=== PATIENT | male | born 1940 | race Caucasian/White ===

== ENCOUNTER → 2019-06-22 13:40 | Outpatient (CLI) | payer MEDICARE, SELFPAY ==
--- NOTE | 2019-06-22 15:47 | PM.TREADMILL ---
Cardiac Stress Test Report Referral & Results Date Patient Seen: 06/22/19 Requesting provider: Kannan Mock Indication: Syncope Rest ECG: Interventricular conduction delay, right bundle branch block with left anterior fascicular block possible (atypical lead placement for treadmill makes this difficult to be sure) Procedure Note: Today following both written and verbal informed consent, the patient was exercised according to a standard George protocol. The patient exercised for a total of 6 minutes 24 seconds achieving a maximum heart rate of 152. Patient's maximum systolic blood pressure was 188. This was an estimated 7.0 MET's. Impression: There were no obvious ST-T segment changes except for single lead V3. This is in the setting of an abnormal ECG at baseline. Excellent exercise capacity with an Function aerobic impairment of-10% or 110% of normal No dysrhythmias or other etiology for syncope Please note: Actual ECG tracings can be found in the PACS system.
== END ==
PROVIDERS: PCP Internal Medicine; Visit Provider Internal Medicine
DX: R07.9 Chest pain, unspecified (principal); R55 Syncope and collapse; I45.10 Unspecified right bundle-branch block
CPT/HCPCS: 93016; 93017; 93018

== ENCOUNTER → 2020-08-27 09:36 | Outpatient (CLI) | payer MEDICARE, SELFPAY ==
--- NOTE | 2020-08-27 09:37 | DI.RAD.S_ITS ---
PROCEDURE: XR LUMBAR SPINE MIN 4V INDICATIONS: Back pain TECHNIQUE: 5 views of the lumbar spine were acquired, including bilateral oblique views. COMPARISON: None. FINDINGS: Bones: 5 nonrib-bearing vertebrae are present. There is mild L4-L5 anterolisthesis secondary to facet hypertrophy. No vertebral body compression fractures. No suspicious bony lesions. Severe L2-L3 and L5-S1 degenerative disc disease. Mild L1-L2, L3-L4 and L4-L5 degenerative disc disease. Severe bilateral L4-L5 and L5-S1 facet arthropathy. No pars interarticularis defects. Soft tissues: Overlying bowel gas pattern is normal. No suspicious soft tissue calcifications. Atherosclerotic calcifications noted in the visualized abdominal and pelvic vasculature. Oblique images: No pars defects. IMPRESSION: 1. Multilevel degenerative disc disease. 2. Multilevel facet arthropathy. 3. Grade 1 L4-L5 degenerative spondylolisthesis. 4. No fracture. No acute osseous lesion. If symptoms and/or clinical suspicion for pathology persists, evaluation with MRI should be considered for further assessment. Dictated by: Jessa Ibrahim MD, PhD on 08/27/2020 at 17:01 Approved by: Jessa Ibrahim MD, PhD on 08/27/2020 at 17:03
== END ==
PROVIDERS: PCP Internal Medicine; Referring Provider Internal Medicine; Visit Provider Internal Medicine
DX: M54.5 Low back pain (principal); G89.29 Other chronic pain; M51.36 Other intervertebral disc degeneration, lumbar region; M47.816 Spondylosis without myelopathy or radiculopathy, lumbar region; M47.817 Spondylosis without myelopathy or radiculopathy, lumbosacral region; M43.16 Spondylolisthesis, lumbar region
CPT/HCPCS: 72110

== ENCOUNTER → 2020-11-15 07:18 | Outpatient (CLI) | payer MEDICARE, SELFPAY ==
--- NOTE | 2020-11-15 07:20 | DI.MRI.S_ITS ---
PROCEDURE: MR LUMBAR SPINE WO CON INDICATIONS: Lumbar facet arthropathy TECHNIQUE: Noncontrast sagittal T1 spin echo and T2 fast echo, sagittal STIR, axial T1 and T2 fast spin echo through the lumbar spine. In cases with scoliosis, additional coronal T2 fast spin echo may be performed. COMPARISON: [facility], MR, L-SPINE WITHOUT CONTRAST, 02/24/2016, 8:16. FINDINGS: Image quality: Excellent. Alignment and Curvature: Grade 1 retrolisthesis of L2 on L3. Trace anterolisthesis of L4 on L5. Bone Marrow: Multilevel spondylosis/endplate changes. Diffuse facet arthropathy. Scattered small Schmorl's nodes. No evidence of acute fracture Spinal Cord: Conus medullaris terminates at the L1-L2 level. Visualized cord demonstrates normal signal and size. Paraspinous Soft Tissues: No paravertebral masses. T12-L1: Moderate left-sided canal narrowing with anterior effacement of the thecal sac. This is progressed since the prior study. Mild partial effacement of the left lateral recess. No foraminal narrowing. L1-L2: Right paracentral disc extrusion with superior migration of disc material to the mid L1 vertebral body level, with mild canal narrowing. This is new since the prior study. Effacement of the right lateral recess. Moderate right foraminal stenosis, and mild left foraminal narrowing. No interval change L2-L3: Dorsal epidural lipomatosis. Broad-based posterior disc bulge and moderate canal narrowing. Partial effacement of both lateral recesses with bilaterally symmetric appearance. Severe right and moderate left foraminal stenoses, with slight progression on the right since 02/24/16. L3-L4: Broad-based posterior disc bulge, with mild to moderate central canal narrowing. Partial effacement of both lateral recesses with bilaterally symmetric appearance. Severe right foraminal stenosis with slight nerve root compression. Moderate left foraminal narrowing. No definite interval change. L4-L5: Mild canal narrowing. Partial effacement of both lateral recesses with bilaterally symmetric appearance. Moderate right foraminal stenosis and mild left foraminal narrowing. No interval change. L5-S1: No high-grade canal stenosis. Partial effacement of both lateral recesses with bilaterally symmetric appearance. Severe left foraminal stenosis with nerve root compression. Severe right foraminal stenosis with nerve root compression. This appears slightly progressed on the left since the prior study. Unchanged on the right IMPRESSION: Multilevel lumbar spondylosis, and spondylolisthesis as above. Interval progression in canal and foraminal stenoses as detailed above by spinal level since 02/24/16 Dictated by: Carlton Guerrero M.D. on 11/15/2020 at 8:32 Approved by: Carlton Guerrero M.D. on 11/15/2020 at 8:42
== END ==
PROVIDERS: PCP Internal Medicine; Referring Provider Physical Medicine & Rehabilitation; Visit Provider Physical Medicine & Rehabilitation
DX: M43.16 Spondylolisthesis, lumbar region (principal); M47.816 Spondylosis without myelopathy or radiculopathy, lumbar region; M48.061 Spinal stenosis, lumbar region without neurogenic claudication; M48.07 Spinal stenosis, lumbosacral region
CPT/HCPCS: 72148

== ENCOUNTER → 2020-12-09 09:44 | Outpatient (CLI) | payer MEDICARE, SELFPAY ==
[2020-12-09 11:10] LABS: COVID19 -Nasal RAPID Negative (Negative)
== END ==
PROVIDERS: PCP Internal Medicine; Visit Provider Student in an Organized Health Care Education/Training Program
DX: Z20.822 Contact with and (suspected) exposure to COVID-19 (principal); Z01.812 Encounter for preprocedural laboratory examination
CPT/HCPCS: 87635; C9803

== ENCOUNTER 2020-12-10 13:51 | Outpatient (CLI) | payer MEDICARE, SELFPAY ==
[2020-12-10] VITALS (7 sets, daily range): BP systolic 165–196; BP diastolic 68–92; PULSE 60–65; RESP 16–23; TEMP 36.6; O2SAT 96–100
--- NOTE | 2020-12-10 13:53 | DI.RAD.S_ITS ---
PROCEDURE: PAIN L/S FACET INJ/BLK 1ST STEVE COMPARISON: None. INDICATIONS: SPONDYLOSIS FINDINGS: Needle tip positioning is symmetric bilaterally, for medial branch block procedures involving the right and left L4, L5, and S1 nerve roots. IMPRESSION: Expected medial branch block needle tip positioning for bilateral L4, L5 and S1 nerve root block procedures. Dictated by: Jose Reyes M.D. on 12/10/2020 at 15:32 Approved by: Jose Reyes M.D. on 12/10/2020 at 15:33
[2020-12-10] MEDS: fentaNYL 100 MCG/2 ML INJ 50 MCG IV (15:00)
[2020-12-10] MEDS: MIDAZOLAM 5 MG/5 ML VIAL IV (15:00)
[2020-12-10] MEDS: IOPAMIDOL 15 ML VIAL 3 ML INJ (15:04)
[2020-12-10] MEDS: LIDOCAINE 1% 20 ML 10 ML INJ (15:04)
[2020-12-10] MEDS: BUPIVACAINE 0.5% (PF) VIAL 5 ML INJ (15:04)
--- NOTE | 2020-12-10 16:16 | PC.NURSE ---
Pt admitted with SBP 160s. Discharged [facility] SBP of 190's. Dr Beltran aware and approved Discharge.
--- NOTE | 2020-12-10 16:44 | PM.PROC.IR.1 ---
Date/Time/Diagnoses Date of procedure: 12/10/20 Time of procedure: 16:44 Pre-procedure diagnosis: 1. FACET ARTHROPATHY Post-procedure diagnosis: same Procedure Notes Procedure: 1. BILATERAL- L4, L5 and S1 DIAGNOSTIC MB BLOCKS with LA Anesthetic Indications: Shweta is referred by Dr. Pryor for treatment of Bilateral Axial LBP. Physician: Ernst Beltran Total Fluoroscopy time (seconds): 8 Total sedation minutes: 12 Complications: none Procedure in detail & Post-procedure care: DESCRIPTION OF PROCEDURE Fluoroscopically guided, contrast-controlled bilateral L4, L5 and S1 medial branch blocks with 0.5cc of 0.5% Marcaine. Following review of allergy and review of potential side effects and complications, including, but not necessarily limited to, infection, allergic reaction, local tissue breakdown, nerve injury, paralysis, stroke and possible , the patient indicated that the patient understood and agreed to proceed. An informed consent document was signed by the patient, witnessed by a nurse, and placed in the patient's chart. After review of previous anaesthesic history and IV conscious sedation the patient was deemed safe to proceed with today's procedure with IV conscious sedation as ASA class II designation. Safety time-out was performed to confirm patient ID, procedure to be performed and site of procedure. IV sedation was accomplished with a combination of 2mg of Versed and 50mcg of Fentanyl was administered by the RN after DO order, titrated to patient comfort during the course of the procedure while the patient remained responsive to all verbal commands In the prone position, following sterile prep and drape of the lumbar region, the right L4, L5 and S1 anatomical location of the medial branch of the dorsal ramus was identified fluoroscopically. Subsequently an anesthetic skin wheal using 1% lidocaine solution was initiated at each of the anatomical spots. Subsequently then a 22-gauge 3.5-inch spinal needle was atraumatically introduced and advanced under fluoroscopic guidance at each of the corresponding sites at the right L4, L5 and S1 MB. After negative aspiration, 0.2cc of Isovue 200 was injected, confirming placement without vascular or intrathecal uptake. Subsequently then 0.5cc of 0.5% Marcaine solution was injected at each of the corresponding sites at the right L4, L5 and S1 medial branch locations. The identical procedure was replicated on the left. The patient tolerated the procedure well without signs or symptoms of complications prior to transfer to the recovery area continued monitoring without incident. Post-procedure, the patient was monitored initiating provocative activities to measure the amount of relief from block of the facetogenic pain. The patient reported a VAS of 7 prior to the procedure and a post-procedure VAS of 1. It has been a pleasure to assist in the diagnostic and therapeutic care of your patient. POST OP INSTRUCTIONS The patient was provided with a Pain Log to complete over the next several hours and subsequent days prior to the patient's follow up with the ordering physician. If the patient has global transportation manager relief to the solution applied, then they may be a candidate for medial branch rhizotomy. The patient is aware, was provided, once again, with a Pain Log and will follow up with the referring physician for review and clinical correlation
== END 2020-12-10 15:40 | disposition home or self-care (01) ==
LOC: RAD 13:52
PROVIDERS: PCP Internal Medicine; Referring Provider Physical Medicine & Rehabilitation; Visit Provider Physical Medicine & Rehabilitation
DX: M47.816 Spondylosis without myelopathy or radiculopathy, lumbar region (principal); M43.16 Spondylolisthesis, lumbar region
CPT/HCPCS: 64493; 64494; 99152; J2250; J3010

== ENCOUNTER 2021-01-14 11:57 | Inpatient (IN) | payer MEDICARE, SELFPAY ==
[2021-01-14] VITALS (36 sets, daily range): BP systolic 104–157; BP diastolic 55–69; PULSE 68–92; RESP 15–31; TEMP 36.8–37.6; O2SAT 96–100; BMI 23.6
--- NOTE | 2021-01-14 12:01 | DI.CT.S_ITS ---
PROCEDURE: CT HEAD/BRAIN WO CON INDICATIONS: dizzy, weak, left leg trembling. TECHNIQUE: Noncontrast 4.5 mm thick angled axial sections acquired from the foramen magnum to the vertex, with coronal and sagittal reformats. For radiation dose reduction, the following was used: automated exposure control, adjustment of mA and/or kV according to patient size. COMPARISON: None. FINDINGS: Image quality: Excellent. CSF spaces: Basal cisterns are patent. No extra-axial fluid collections. The ventricles are symmetric in size and shape. Brain: No intracranial bleeds or masses. There is cerebral volume loss for age, with resultant ventricular and sulcal prominence. There are periventricular and deep white matter chronic small vessel ischemic changes. There is intracranial internal carotid artery atherosclerosis. Skull and face: Calvarium and visualized facial bones appear intact, without suspicious lesions. Sinuses: Visualized sinuses and mastoids are clear. IMPRESSION: 1. No acute intracranial abnormality. 2. Age related cerebral volume loss and small vessel ischemic changes. Dictated by: Oh Vazquez M.D. on 01/14/2021 at 12:56 Approved by: Oh Vazquez M.D. on 01/14/2021 at 12:57
[2021-01-14] MEDS: SODIUM CHLORIDE 0.9% 1,000 ML 150 ML IV (12:38)
[2021-01-14 12:42] LABS: INR 1.1 (0.9-1.3); Prothrombin Time 12.8 SECONDS (10.1-12.7)
[2021-01-14 12:45] LABS: Alanine Aminotransferase 16 IU/L (<50); Albumin 3.2 g/dL (3.5-5.0); Albumin Globulin Ratio 1.3 (1.0-2.8); Alkaline Phosphatase 49 U/L (38-126); Aspartate Aminotransferase 26 IU/L (17-59); BUN Creatinine Ratio 56.1 (6-22); Bilirubin Total 0.2 mg/dL (0.2-1.3); Blood Urea Nitrogen 46 mg/dL (9-20); Calcium 8.4 mg/dL (8.4-10.2); Carbon Dioxide 24 mmol/L (22-32); Chloride 107 mmol/L (98-107); Creatine Kinase 67 U/L (55-170); Estimated Glomerular Filt Rate > 60.0 mL/min (>60); Globulin 2.5 g/dL (1.7-4.1); Glucose 126 mg/dL (80-110); HEMOLYSIS < 15 (0-50); PTT Partial Thromboplastin Tim 20 SECONDS (26.4-36.2); Potassium 4.1 mmol/L (3.4-5.1); Sodium 138 mmol/L (137-145); Total Protein 5.7 g/dL (6.3-8.2)
[2021-01-14 12:49] LABS: Add Manual Diff / Slide Review NO; Basophils Absolute Auto 100 /uL (0-100); Basophils Percent Auto 0.7 % (0-2); Eosinophils Absolute Auto 0 /uL (0-450); Eosinophils Percent Auto 0.2 % (2-4); Hematocrit 21.8 % (41-53); Hemoglobin 7.1 g/dL (13.5-17.5); Lymphocytes Absolute Auto 2100 /uL (1100-4500); Lymphocytes Percent Auto 13.3 % (25-40); Mean Corpuscular HGB Conc 32.4 % (30-36); Mean Corpuscular Hemoglobin 31.2 PG (26-34); Mean Corpuscular Volume 96.3 fL (80-100); Monocytes Absolute Auto 1000 /uL (0-900); Monocytes Percent Auto 6.6 % (3-14); Neutrophils Absolute Auto 12500 /uL (1500-7000); Neutrophils Percent Auto 79.2 % (50-75); Platelet Count 241 X10^3/uL (150-400); Red Blood Cell Count 2.26 X10^6/uL (4.5-5.9); White Blood Cell Count 15.8 X10^3/uL (4.5-11.0)
[2021-01-14 12:59] LABS: Troponin I 0.354 ng/mL (0.01-0.034)
--- NOTE | 2021-01-14 13:03 | ED.NEUROSD ---
HPI - Neuro Symptoms/Deficit General Chief Complaint: Neuro Symptoms/Deficit Stated Complaint: vertigo, shortness of breath Time Seen by Provider: 01/14/21 13:00 Source: patient and family Mode of arrival: Wheelchair History of Present Illness HPI Narrative: This is a pleasant 80-year-old male comes emergency department with complaint of lightheadedness, almost syncope but states he did not pass out. He denies any headache, denies vision changes, no chest pain or shortness of breath. He had some abdominal crampy pain over the weekend on Wednesday and Wednesday and had multiple explosive diarrheal black bowel movements which have since ceased. Patient does have chronic back issues. Patient denies any numbness or tingling but did feel like he is having some shaking in his left arm and possibly well male. Patient denies any surgical history. He does not take any blood thinners. He does take metoprolol for blood pressure, he denies any diabetes, kidney disease or prior GI bleeds he is aware of. No prior surgical history. No allergies. He quit smoking in the , 1 alcoholic drink daily maximum with no illicit drugs. He is accompanied by his son. His is currently hospitalized here at [facility]. Dr. Pryor is his primary care. On Anticoagulants: No Related Data Home Medications Medication Instructions Recorded Confirmed Calcium 2 tab PO DAILY 03/08/20 11/01/20 Green Tea 1 tab PO DAILY 03/08/20 11/01/20 Vitamin A 1 tab PO DAILY 03/08/20 11/01/20 Vitamin D 1 tab PO Q OTHER DAY 03/08/20 11/01/20 betamethasone dipropionate 0.05 % 1 applictn TOP DAILY gram 03/08/20 11/01/20 topical ointment krill oil 500 mg capsule 500 mg PO DAILY cap 03/08/20 11/01/20 lutein 20 mg tablet 20 mg PO DAILY 03/08/20 11/01/20 Previous Rx's Medication Instructions Recorded metoprolol succinate 50 mg 50 mg PO DAILY #90 tab 10/04/20 tablet,extended release 24 hr celecoxib 200 mg capsule (Celebrex) 200 mg PO DAILY #30 cap 10/28/20 Allergies Allergy/AdvReac Type Severity Reaction Status Date / Time No Known Drug Allergies Allergy Verified 11/01/20 15:38 Review of Systems Review of Systems ROS Unobtainable: All systems reviewed & are unremarkable except as noted in HPI and below Hematologic/Lymphatic On Anticoagulants: No 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 HEENT: Atraumatic, pupils are equal round reactive to light, extraocular movements are intact, nares are clear, no facial droop HEART: Regular rate and rhythm without murmur, clicks, rubs. Pulses are equal in upper and lower extremities LUNGS:Lungs clear to auscultation, no wheezes, rales, crackles, chest moves symmetrically ABD:bowel sounds normal, soft, non-tender, no guarding, rebound, rigidity, no masses noted, no hepatosplenomegaly :No CVA tenderness MSCL: Non-tender, no muscle atrophy, muscles strength 5/5 upper and lower extremities, full range of motion, normal gait NEURO:CN 2-12 intact, sensation normal, finger nose finger test normal, heel eric test normal, romberg normal, normal speech. SKIN: No rash, skin changes noted Initial Vital Signs Initial Vital Signs: Vital Signs Temperature 98.3 F 01/14/21 12:10 Pulse Rate 80 01/14/21 12:10 Respiratory Rate 25 H 01/14/21 12:10 Blood Pressure 157/69 H 01/14/21 12:10 Pulse Oximetry 96 01/14/21 12:10 Scores NIH Stroke Scale Level of Conciousness: Alert, keenly responsive Ask month/age: Answers both questions correctly. Open/close eyes, close hand: Performs both tasks correctly Best gaze horizontal: Normal Visual burns: No visual loss Facial palsy: Normal symetrical movement Left arm drift: No drift for full 10 sec Right arm drift: No drift for full 10 sec Left leg drift: No drift for full 5 sec Right leg drift: No drift for full 5 sec Limb ataxia: Absent Sensory on face/arms/legs: Normal, no sensory loss Best language: No aphasia, normal Dysarthria: Normal Extinction or inattention: No abnormality Total NIH Stroke scale score: 0 Course Orders Ordered: ED Orders 01/14/21 12:01 CT head/brain wo con Stat Urine Drug Screen, Rapid Stat EKG-12 Lead Stat 01/14/21 12:15 Complete Blood Count AUTO DIFF Stat Comprehensive Metabolic Panel Stat NT-proBNP (BNP-Adult 18+) Stat Partial Thromboplastin Time Stat Prothrombin Time INR Stat Troponin & CK Cardiac Panel Stat 01/14/21 13:24 CT abdomen pelvis w con Stat 01/14/21 13:30 COVID19 - ADMIT ([facility] [employer]IST swab/PCR) Stat 01/14/21 13:40 Packed Cells Stat Type and Screen Stat 01/14/21 14:31 Troponin I Stat 01/14/21 18:30 Urinalysis and Microscopic Stat Sodium Chloride (Normal Saline 0.9%) 1,000 mls @ 150 mls/hr IV CONT TOMASA Last Infusion: 01/14/21 18:20 Dose: 150 mls/hr Documented by: Infusion: 01/14/21 14:52 Dose: 0 mls/hr Documented by: Admin: 01/14/21 12:38 Dose: 150 mls/hr Documented by: MONIQUEOR Discontinued Medications Aspirin (Aspirin 81 Mg Chew Tab) 324 mg PO NOW ONE Stop: 01/14/21 13:07 Last Admin: 01/14/21 13:10 Dose: 324 mg Documented by: ATAYLOR Pantoprazole Sodium (Pantoprazole 40 Mg Vial) 80 mg IV NOW ONE Stop: 01/14/21 14:10 Last Admin: 01/14/21 14:16 Dose: 80 mg Documented by: ATAYLOR Consultations Consultation #1: Dr. Mccartney, aware of patient. Plan to transfuse and they will follow. Consultation #2: Dr. Pryor, accepts for gi bleed. no cardiology at this time suspect demand ischemia. protonix, blood and asa given today. Vital Signs Vital signs: Vital Signs - 8 hr 01/14/21 12:10 01/14/21 13:03 01/14/21 13:30 Temperature 98.3 F Pulse Rate 80 76 77 Respiratory Rate 25 H 26 H 27 H Blood Pressure 157/69 H 132/60 Pulse Oximetry 96 100 100 01/14/21 13:37 01/14/21 13:45 01/14/21 14:00 Temperature Pulse Rate 78 74 92 H Respiratory Rate 30 H 18 15 Blood Pressure 140/64 135/61 119/56 L Pulse Oximetry 100 100 96 01/14/21 14:15 01/14/21 14:30 Temperature Pulse Rate 79 80 Respiratory Rate 31 H 28 H Blood Pressure 135/63 Pulse Oximetry 98 99 MDM - Neuro Symptoms/Deficit Lab Data Result diagrams: 01/14/21 12:15 01/14/21 12:15 Labs: Lab Results 01/14/21 01/14/21 01/14/21 Range/Units 12:15 12:15 12:15 WBC 15.8 H (4.5-11.0) X10^3/uL RBC 2.26 L (4.5-5.9) X10^6/uL Hgb 7.1 L (13.5-17.5) g/dL Hct 21.8 L (41-53) % MCV 96.3 (80-100) fL MCH 31.2 (26-34) PG MCHC 32.4 (30-36) % RDW 14.0 (11.6-14.8) % Plt Count 241 (150-400) X10^3/uL Neut % (Auto) 79.2 H (50-75) % Lymph % (Auto) 13.3 L (25-40) % [place] % (Auto) 6.6 (3-14) % Eos % (Auto) 0.2 L (2-4) % Baso % (Auto) 0.7 (0-2) % Neut # (Auto) 17632 H (8881-7879) /uL Lymph # (Auto) 2100 (3105-7760) /uL [place] # (Auto) 1000 H (0-900) /uL Eos # (Auto) 0 (0-450) /uL Baso # (Auto) 100 (0-100) /uL PT 12.8 H (10.1-12.7) SECONDS INR 1.1 (0.9-1.3) APTT 20 L (26.4-36.2) SECONDS Sodium 138 (137-145) mmol/L Potassium 4.1 (3.4-5.1) mmol/L Chloride 107 (98-107) mmol/L Carbon Dioxide 24 (22-32) mmol/L BUN 46 H (9-20) mg/dL Creatinine 0.82 (0.66-1.25) mg/dL Estimated GFR > 60.0 (>60) mL/min BUN/Creatinine Ratio 56.1 H (6-22) Glucose 126 H (80-110) mg/dL Calcium 8.4 (8.4-10.2) mg/dL Total Bilirubin 0.2 (0.2-1.3) mg/dL AST 26 (17-59) IU/L ALT 16 (<50) IU/L Alkaline Phosphatase 49 (38-126) U/L Total Creatine Kinase 67 (55-170) U/L CK-MB (CK-2) TNP CK-MB (CK-2) Rel Index TNP Troponin I 0.354 H* (0.01-0.034) ng/mL NT-Pro-B Natriuret Pep (<450) pg/mL Total Protein 5.7 L (6.3-8.2) g/dL Albumin 3.2 L (3.5-5.0) g/dL Globulin 2.5 (1.7-4.1) g/dL Albumin/Globulin Ratio 1.3 (1.0-2.8) SARS-CoV-2 (PCR) (Negative) Blood Type Antibody Screen Crossmatch 01/14/21 01/14/21 01/14/21 Range/Units 12:15 13:30 13:40 WBC (4.5-11.0) X10^3/uL RBC (4.5-5.9) X10^6/uL Hgb (13.5-17.5) g/dL Hct (41-53) % MCV (80-100) fL MCH (26-34) PG MCHC (30-36) % RDW (11.6-14.8) % Plt Count (150-400) X10^3/uL Neut % (Auto) (50-75) % Lymph % (Auto) (25-40) % [place] % (Auto) (3-14) % Eos % (Auto) (2-4) % Baso % (Auto) (0-2) % Neut # (Auto) (4100-8710) /uL Lymph # (Auto) (8508-9873) /uL [place] # (Auto) (0-900) /uL Eos # (Auto) (0-450) /uL Baso # (Auto) (0-100) /uL PT (10.1-12.7) SECONDS INR (0.9-1.3) APTT (26.4-36.2) SECONDS Sodium (137-145) mmol/L Potassium (3.4-5.1) mmol/L Chloride (98-107) mmol/L Carbon Dioxide (22-32) mmol/L BUN (9-20) mg/dL Creatinine (0.66-1.25) mg/dL Estimated GFR (>60) mL/min BUN/Creatinine Ratio (6-22) Glucose (80-110) mg/dL Calcium (8.4-10.2) mg/dL Total Bilirubin (0.2-1.3) mg/dL AST (17-59) IU/L ALT (<50) IU/L Alkaline Phosphatase (38-126) U/L Total Creatine Kinase (55-170) U/L CK-MB (CK-2) CK-MB (CK-2) Rel Index Troponin I (0.01-0.034) ng/mL NT-Pro-B Natriuret Pep 540 H (<450) pg/mL Total Protein (6.3-8.2) g/dL Albumin (3.5-5.0) g/dL Globulin (1.7-4.1) g/dL Albumin/Globulin Ratio (1.0-2.8) SARS-CoV-2 (PCR) Negative (Negative) Blood Type O Positive Antibody Screen Negative Crossmatch See Detail 01/14/21 Range/Units 14:31 WBC (4.5-11.0) X10^3/uL RBC (4.5-5.9) X10^6/uL Hgb (13.5-17.5) g/dL Hct (41-53) % MCV (80-100) fL MCH (26-34) PG MCHC (30-36) % RDW (11.6-14.8) % Plt Count (150-400) X10^3/uL Neut % (Auto) (50-75) % Lymph % (Auto) (25-40) % [place] % (Auto) (3-14) % Eos % (Auto) (2-4) % Baso % (Auto) (0-2) % Neut # (Auto) (1857-1310) /uL Lymph # (Auto) (5581-2238) /uL [place] # (Auto) (0-900) /uL Eos # (Auto) (0-450) /uL Baso # (Auto) (0-100) /uL PT (10.1-12.7) SECONDS INR (0.9-1.3) APTT (26.4-36.2) SECONDS Sodium (137-145) mmol/L Potassium (3.4-5.1) mmol/L Chloride (98-107) mmol/L Carbon Dioxide (22-32) mmol/L BUN (9-20) mg/dL Creatinine (0.66-1.25) mg/dL Estimated GFR (>60) mL/min BUN/Creatinine Ratio (6-22) Glucose (80-110) mg/dL Calcium (8.4-10.2) mg/dL Total Bilirubin (0.2-1.3) mg/dL AST (17-59) IU/L ALT (<50) IU/L Alkaline Phosphatase (38-126) U/L Total Creatine Kinase (55-170) U/L CK-MB (CK-2) CK-MB (CK-2) Rel Index Troponin I 0.323 H* (0.01-0.034) ng/mL NT-Pro-B Natriuret Pep (<450) pg/mL Total Protein (6.3-8.2) g/dL Albumin (3.5-5.0) g/dL Globulin (1.7-4.1) g/dL Albumin/Globulin Ratio (1.0-2.8) SARS-CoV-2 (PCR) (Negative) Blood Type Antibody Screen Crossmatch Point of Care Testing Glucose POC [address] scan - abdomen/pelvis: Radiologist's Impression: [address], [place] [address]XK Scan ReportSigned Patient: Riley Sexton PMR#: [id number]: 1940Acct:[id number]/Sex: 80 / MDate of Service: 01/14/21Loc: EDAccession Number: [id number] Procedure: CT abdomen pelvis w con Ordering Provider: Ellen Cortes D.O. PROCEDURE: CT ABDOMEN PELVIS W CON INDICATIONS: anemia, gi bleed TECHNIQUE: After the administration of IV contrast, axial sections were acquired from the lung bases to the pubic symphysis. Coronal and sagittal reformats were performed. For radiation dose reduction, the following was used: automated exposure control, adjustment of mA and/or kV according to patient size. COMPARISON: [facility], CT, IVP (ABD & PEL WWO CONTRAST), 09/20/2012, 9:20. FINDINGS: Image quality: Excellent. Lung bases: Unremarkable. Heart: Within normal limits. ABDOMEN: Liver: Unremarkable. Gallbladder: Unremarkable. Biliary ducts: Unremarkable. Pancreas: Unremarkable. Spleen: Small hyperdense focus in the superior spleen is unchanged and likely a hemangioma. Adrenal Glands: Unremarkable. Kidneys and Ureters: No hydronephrosis. Nonobstructing calculus at the superior pole of the right kidney measuring 0.2 cm. Stomach and Bowel: No small bowel obstruction. No focal area of contrast accumulation. Diverticulosis. No diverticulitis. The appendix is not distended. There is a small appendicular lith measuring 0.7 cm. Peritoneum: No abnormal intraperitoneal fluid. No free air. Ventral Wall: No hernia. Abdominal Nodes: No retroperitoneal or mesenteric adenopathy by size criteria. Vessels: Aorta and inferior vena cava are normal in size. Severe calcified atherosclerotic plaque. PELVIS: Pelvic Organs: Prostatomegaly with median lobe hypertrophy. Bladder: Unremarkable. Pelvic Nodes: No enlarged lymph nodes. Miscellaneous: No inguinal hernias are seen. Bones: Unremarkable. DDD. IMPRESSION: 1. No acute abnormality identified. No free fluid. 2. Diverticulosis. 3. Small appendiculolith. Appendix is not dilated. 4. Small nonobstructing right kidney stone. Dictated by: Giuseppe Thomas M.D. on 01/14/2021 at 14:07 Approved by: Giuseppe Thomas M.D. on 01/14/2021 at 14:15 CT scan - head: Radiologist's Impression: [address] [id number] Scan ReportSigned Patient: Riley Sexton PMR#: [id number]: 1940Acct:[id number]/Sex: 80 / MDate of Service: 01/14/21Loc: EDAccession Number: [id number] Procedure: CT head/brain wo con Ordering Provider: Ellen Cortes D.O. PROCEDURE: CT HEAD/BRAIN WO CON INDICATIONS: dizzy, weak, left leg trembling. TECHNIQUE: Noncontrast 4.5 mm thick angled axial sections acquired from the foramen magnum to the vertex, with coronal and sagittal reformats. For radiation dose reduction, the following was used: automated exposure control, adjustment of mA and/or kV according to patient size. COMPARISON: None. FINDINGS: Image quality: Excellent. CSF spaces: Basal cisterns are patent. No extra-axial fluid collections. The ventricles are symmetric in size and shape. Brain: No intracranial bleeds or masses. There is cerebral volume loss for age, with resultant ventricular and sulcal prominence. There are periventricular and deep white matter chronic small vessel ischemic changes. There is intracranial internal carotid artery atherosclerosis. Skull and face: Calvarium and visualized facial bones appear intact, without suspicious lesions. Sinuses: Visualized sinuses and mastoids are clear. IMPRESSION: 1. No acute intracranial abnormality. 2. Age related cerebral volume loss and small vessel ischemic changes. Dictated by: Oh Vazquez M.D. on 01/14/2021 at 12:56 Approved by: Oh Vazquez M.D. on 01/14/2021 at 12:57 ECG Data Interpretation: Sinus rhythm with sinus arrhythmia, right bundle-branch block. Ventricular rate PR150 QRS of 138 QTC 464. No priors for comparision. MDM Narrative Medical decision making narrative: This is an 80-year-old male who comes to the emergency department for weakness, near-syncope and black stools over the weekend. Patient's hemoglobin is 7 with no priors for comparison. His troponin is positive with right bundle-branch block on EKG unclear if he has any other changes. Patient has positive stool occult. No significant renal changes from baseline. Patient's troponin was trending down words. Patient was transfused 1 unit here in the department, CT imaging was obtained of the head which was negative an NIH was 0 and I suspect patient's dizziness vertigo symptoms are actually near syncope. Patient's CT abdomen and pelvis, does not show any acute changes. No patient was discussed with Dr. Mccartney for General surgery as well as Dr. Pryor who accepts for admission. Suspect his troponin is demand ischemia and no plan for Cardiology at this time. Patient was placed on Protonix as well as a single dose of aspirin given. Critical Care Time Critical Care Time Critical Care Time: Yes Total Critical Care Time: 95 Attestation: The high probability of a clinically significant, sudden or life threatening deterioration of the [cardiac] system(s) required my full and direct attention, intervention and personal management. The aggregate critical care time was [] minutes. This time is in addition to time spent performing reported procedures but includes the following: [x] Data Review and interpretation [x] Patient assessment and monitoring of vital signs [x] Documentation [x] Medication orders and management Discharge Plan Departure Patient Disposition: Admitted as Observation Clinical Impression: Acute GI bleeding, Symptomatic anemia Admit Date/Time: 01/14/21 14:34 Admit Provider: Mian Pryor
[2021-01-14] MEDS: ASPIRIN 81 MG CHEW TAB 324 MG PO (13:10)
--- NOTE | 2021-01-14 13:24 | DI.CT.S_ITS ---
PROCEDURE: CT ABDOMEN PELVIS W CON INDICATIONS: anemia, gi bleed TECHNIQUE: After the administration of IV contrast, axial sections were acquired from the lung bases to the pubic symphysis. Coronal and sagittal reformats were performed. For radiation dose reduction, the following was used: automated exposure control, adjustment of mA and/or kV according to patient size. COMPARISON: [facility], CT, IVP (ABD & PEL WWO CONTRAST), 09/20/2012, 9:20. FINDINGS: Image quality: Excellent. Lung bases: Unremarkable. Heart: Within normal limits. ABDOMEN: Liver: Unremarkable. Gallbladder: Unremarkable. Biliary ducts: Unremarkable. Pancreas: Unremarkable. Spleen: Small hyperdense focus in the superior spleen is unchanged and likely a hemangioma. Adrenal Glands: Unremarkable. Kidneys and Ureters: No hydronephrosis. Nonobstructing calculus at the superior pole of the right kidney measuring 0.2 cm. Stomach and Bowel: No small bowel obstruction. No focal area of contrast accumulation. Diverticulosis. No diverticulitis. The appendix is not distended. There is a small appendicular lith measuring 0.7 cm. Peritoneum: No abnormal intraperitoneal fluid. No free air. Ventral Wall: No hernia. Abdominal Nodes: No retroperitoneal or mesenteric adenopathy by size criteria. Vessels: Aorta and inferior vena cava are normal in size. Severe calcified atherosclerotic plaque. PELVIS: Pelvic Organs: Prostatomegaly with median lobe hypertrophy. Bladder: Unremarkable. Pelvic Nodes: No enlarged lymph nodes. Miscellaneous: No inguinal hernias are seen. Bones: Unremarkable. DDD. IMPRESSION: 1. No acute abnormality identified. No free fluid. 2. Diverticulosis. 3. Small appendiculolith. Appendix is not dilated. 4. Small nonobstructing right kidney stone. Dictated by: Giuseppe Thomas M.D. on 01/14/2021 at 14:07 Approved by: Giuseppe Thomas M.D. on 01/14/2021 at 14:15
[2021-01-14 13:34] LABS: NT-proBNP (BNP-Adult 18+) 540 pg/mL (<450)
[2021-01-14] MEDS: PANTOPRAZOLE 40 MG VIAL 80 MG IV (14:16)
[2021-01-14 14:46] LABS: COVID19 - ADMIT (NP swab/PCR) Negative (Negative)
[2021-01-14 15:01] LABS: Troponin I 0.323 ng/mL (0.01-0.034)
--- NOTE | 2021-01-14 15:12 | P.HP_ITS ---
History of Present Illness History of Present Illness Date Patient Seen: 01/14/21 Time Patient Seen: 15:12 Chief complaint: vertigo, shortness of breath Narrative: 80-year-old male admitted via the emergency department with symptoms of dizziness as well as shortness of breath. His spouse is currently hospitalized with complications related to her poorly characterized lymphoma and he has been under a great deal stress regarding this, over the last month or more He called my office complaining of weakness and some shortness of breath as well as a sense of dizziness maybe even some numbness and tingling left greater than right. We directed him to the emergency department worries found to be quite anemic. He says he had very loose diarrheal stool on the and 12 of January that was very dark/black in color. He has not had a bowel movement since the 12 of January.. Denies any other GI symptoms including lack of upper stomach or abdominal pain or discomfort. 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) Melanoma (~2016) Mixed hyperlipidemia Retinal detachment (~2001) Spondylolisthesis at L4-L5 level Tinnitus (~2014) Surgical History Anesthesia History of spinal surgery Family & Social History Safety & Behavioral: Feels Safe in Current Yes Environment Been Physically Hurt or No Threatened By a Person Tobacco & Substance use: Smoking Status Former smoker alcohol intake frequency 0-2 drinks per day Meds Home Medications and Allergies Home Medications Medication Instructions Recorded Confirmed Type Calcium 2 tab PO DAILY 03/08/20 11/01/20 History Green Tea 1 tab PO DAILY 03/08/20 11/01/20 History Vitamin A 1 tab PO DAILY 03/08/20 11/01/20 History Vitamin D 1 tab PO Q OTHER DAY 03/08/20 11/01/20 History betamethasone dipropionate 0.05 % 1 applictn TOP DAILY gram 03/08/20 11/01/20 History topical ointment krill oil 500 mg capsule 500 mg PO DAILY cap 03/08/20 11/01/20 History lutein 20 mg tablet 20 mg PO DAILY 03/08/20 11/01/20 History metoprolol succinate 50 mg 50 mg PO DAILY #90 tab 10/04/20 11/01/20 Rx tablet,extended release 24 hr celecoxib 200 mg capsule (Celebrex) 200 mg PO DAILY #30 cap 10/28/20 11/01/20 Rx Allergies Allergy/AdvReac Type Severity Reaction Status Date / Time No Known Drug Allergies Allergy Verified 11/01/20 15:38 Review of Systems Constitutional Constitutional: Denies excessive sweating, Denies fever(s), Denies headache(s), Denies weakness, Denies weight gain and Denies weight loss Eyes Eyes: Denies loss of vision ENT Ears, Nose, Mouth, and Throat: No change in voice, No dysphagia, No dizziness, N o otalgia, No headache(s), No hoarseness, No lip swelling, No neck pain, No sore throat, No throat swelling and No tongue swelling Cardiovascular Cardiovascular: Denies chest pain, Denies syncope, Denies rapid heart rate, Denies irregular heart rhythm, Denies palpitations, Denies dyspnea, Denies dyspnea on exertion and Denies slow heart rate Respiratory Respiratory: Denies chest congestion, Denies cough, Denies hemoptysis, Denies dyspnea, Denies dyspnea on exertion, Denies stridor and Denies wheezing Gastrointestinal Gastrointestinal: Denies dysphagia Genitourinary Genitourinary: Denies hematuria, Denies difficulty urinating and Denies urinary frequency Musculoskeletal Musculoskeletal: Denies abnormal gait, Denies myalgias, Denies arthralgias, D enies limited range of motion and Denies neck pain Neurologic Neurologic: Denies abnormal speech, Denies abnormal gait, Denies behavioral changes, Denies confusion, Denies dizziness, Denies syncope, Denies headache(s), Denies loss of vision, Denies memory loss, Denies seizure-like activity, Denies paresthesias and Denies weakness Psychiatric Psychiatric: Denies behavioral changes, Denies change in appetite, Denies confusion, Denies difficulty concentrating, Denies auditory hallucinations, Denies memory loss, Denies mood swings and Denies suicidal ideation Endocrine Endocrine: Denies excessive sweating and Denies palpitations Hematologic/Lymphatic Hematologic/Lymphatic: Denies easy bleeding, Denies easy bruising and Denies lymphadenopathy Allergic/Immunologic Allergic/Immunologic: Denies lip swelling, Denies throat swelling, Denies tongue swelling and Denies wheezing Exam Vital Signs (past 8 hours): - 01/14/21 12:10 01/14/21 13:03 01/14/21 13:30 Temperature 98.3 F Pulse Rate 80 76 77 Respiratory Rate 25 H 26 H 27 H Blood Pressure 157/69 H 132/60 Pulse Oximetry 96 100 100 01/14/21 13:37 01/14/21 13:45 01/14/21 14:00 Temperature Pulse Rate 78 74 92 H Respiratory Rate 30 H 18 15 Blood Pressure 140/64 135/61 119/56 L Pulse Oximetry 100 100 96 01/14/21 14:15 01/14/21 14:30 01/14/21 14:37 Temperature Pulse Rate 79 80 76 Respiratory Rate 31 H 28 H 22 Blood Pressure 135/63 119/57 L Pulse Oximetry 98 99 98 01/14/21 14:45 01/14/21 14:47 01/14/21 15:06 Temperature 98.8 F 98.5 F Pulse Rate 80 76 74 Respiratory Rate 27 H 22 17 Blood Pressure 134/60 123/59 L 112/56 L Pulse Oximetry 99 100 Oxygen Delivery Method Room Air Narrative Exam Narrative: Elderly male in no obvious distress lying on a gurney in the e mergency department HEENT-normocephalic atraumatic Neck-no lymphadenopathy no bruits Lungs-clear Heart-regular rate and rhythm no murmur Abdomen-soft nontender nondistended no hepatosplenomegaly Extremities-no cyanosis clubbing or edema Neuro-moves all 4 extremities no focal findings gait not tested Objective Labs Result Diagrams: 01/14/21 12:15 01/14/21 12:15 Labs: Laboratory Results - last 24 hr 01/14/21 01/14/21 01/14/21 12:15 12:15 12:15 WBC 15.8 H RBC 2.26 L Hgb 7.1 L Hct 21.8 L MCV 96.3 MCH 31.2 MCHC 32.4 RDW 14.0 Plt Count 241 Neut % (Auto) 79.2 H Lymph % (Auto) 13.3 L [place] % (Auto) 6.6 Eos % (Auto) 0.2 L Baso % (Auto) 0.7 Neut # (Auto) 65977 H Lymph # (Auto) 2100 [place] # (Auto) 1000 H Eos # (Auto) 0 Baso # (Auto) 100 PT 12.8 H INR 1.1 APTT 20 L Sodium 138 Potassium 4.1 Chloride 107 Carbon Dioxide 24 BUN 46 H Creatinine 0.82 Estimated GFR > 60.0 BUN/Creatinine Ratio 56.1 H Glucose 126 H Calcium 8.4 Total Bilirubin 0.2 AST 26 ALT 16 Alkaline Phosphatase 49 Total Creatine Kinase 67 CK-MB (CK-2) TNP CK-MB (CK-2) Rel Index TNP Troponin I 0.354 H* NT-Pro-B Natriuret Pep Total Protein 5.7 L Albumin 3.2 L Globulin 2.5 Albumin/Globulin Ratio 1.3 SARS-CoV-2 (PCR) Blood Type Antibody Screen Crossmatch 01/14/21 01/14/21 01/14/21 12:15 13:30 13:40 WBC RBC Hgb Hct MCV MCH MCHC RDW Plt Count Neut % (Auto) Lymph % (Auto) [place] % (Auto) Eos % (Auto) Baso % (Auto) Neut # (Auto) Lymph # (Auto) [place] # (Auto) Eos # (Auto) Baso # (Auto) PT INR APTT Sodium Potassium Chloride Carbon Dioxide BUN Creatinine Estimated GFR BUN/Creatinine Ratio Glucose Calcium Total Bilirubin AST ALT Alkaline Phosphatase Total Creatine Kinase CK-MB (CK-2) CK-MB (CK-2) Rel Index Troponin I NT-Pro-B Natriuret Pep 540 H Total Protein Albumin Globulin Albumin/Globulin Ratio SARS-CoV-2 (PCR) Negative Blood Type O Positive Antibody Screen Negative Crossmatch See Detail 01/14/21 14:31 WBC RBC Hgb Hct MCV MCH MCHC RDW Plt Count Neut % (Auto) Lymph % (Auto) [place] % (Auto) Eos % (Auto) Baso % (Auto) Neut # (Auto) Lymph # (Auto) [place] # (Auto) Eos # (Auto) Baso # (Auto) PT INR APTT Sodium Potassium Chloride Carbon Dioxide BUN Creatinine Estimated GFR BUN/Creatinine Ratio Glucose Calcium Total Bilirubin AST ALT Alkaline Phosphatase Total Creatine Kinase CK-MB (CK-2) CK-MB (CK-2) Rel Index Troponin I 0.323 H* NT-Pro-B Natriuret Pep Total Protein Albumin Globulin Albumin/Globulin Ratio SARS-CoV-2 (PCR) Blood Type Antibody Screen Crossmatch Assessment & Plan Assessment & Plan narrative: 1. Acute GI bleeding-symptoms are suggestive more of an upper GI bleed which be consistent with this history as well with his increased stress etcetera. I abbi erica he is low enough (from hemoglobin hematocrit standpoint) especially with the minimally elevated troponin to benefit from transfusion in so will get that accomplished. I think he needs upper endoscopy and he has been started on proton pump inhibitor already emergency department. He was given aspirin in the emergency department due to the elevated troponin but I will hold off on any further NSAIDs. Patient does have a history of colonic diverticulitis so this could be a lower GI source although given the history above with dark stool seems more likely to be an upper rather than lower GI source. If upper endoscopy fails to reveal an etiology could be prepped for colonoscopy in colonoscopy could be performed. I will consult General surgery for thoughts regarding appropriateness of upper and/or lower endoscopy 2. Elevated troponin-patient with no known coronary disease and if there is any ischemia likely secondary to demand due to his acute blood loss anemia. Continue to trend his troponin unless there some features to suggest otherwise assume this will normalize. Once he is stabilized could consider outpatient workup for possible coronary artery disease. 3. Acute blood loss anemia-as above will transfuse based on his GI bleeding as well as elevated troponin 4. Back pain-patient with chronic back pain. Will have some oxycodone available for pain control since patient is not a candidate for any NSAIDs 5. VTE prophylaxis-patient not candidate for anticoagulation given his GI bleeding. SCDs would be appropriate. 6. Code status-patient should be full code in the event of sudden cardiac or respiratory arrest which is not anticipated. Given the serious nature of his presentation with active GI bleeding and elevated troponin patient's certainly deserves inpatient hospitalization. He likely be in the hospital greater than 48 hours that will span 2 separate midnights at least. COVID-19 COVID-19 status: Negative
[2021-01-14 19:32] LABS: UR Morphine/Opiate cutoff 300 Negative (Negative); Ur Creatinine Normal (Normal); Ur Specific Gravity Normal (Normal); Urine Amphetamines Negative (Negative); Urine Barbiturates Negative (Negative); Urine Benzodiazepines Negative (Negative); Urine Cocaine Negative (Negative); Urine MDMA Negative (Negative); Urine Methadone Negative (Negative); Urine Methamphetamines Negative (Negative); Urine Oxycodone Negative (Negative); Urine Phencyclidine Negative (Negative); Urine Tetrahydrocannabinol Negative (Negative); Urine Tricyclic Antidepressant Negative (Negative); Urine pH Normal (Normal)
[2021-01-14 19:52] LABS: Appearance Urine UA CLEAR; Bacteria Urine None Seen; Bilirubin Urine UA NEGATIVE (NEGATIVE); Color Urine UA YELLOW; Glucose Urine UA NEGATIVE (Negative); Ketones Urine UA NEGATIVE (NEGATIVE); Leukocyte Esterase Urine UA NEGATIVE (NEGATIVE); Nitrite Urine UA NEGATIVE (Negative); Occult Blood Urine UA NEGATIVE (Negative); Protein Urine UA NEGATIVE (Negative); Specific Gravity Urine UA <=1.005 (1.000-1.035); Urobilinogen Urine UA 0.2 E.U./dL (0.2)
[2021-01-14 19:56] LABS: Culture Indicated Urine Cult Not Indicated; RBC Urine 0-1/HPF (0-5/HPF); Squamous Epithelial Cell Urine 0-1 /HPF (0-5/HPF); WBC Urine 1-5/HPF (0-5/HPF)
[2021-01-14] MEDS: DEXTROSE 5%-0.9% NS 1,000 ML 100 ML IV (21:05)
[2021-01-14 21:32] LABS: Troponin I 0.317 ng/mL (0.01-0.034)
--- NOTE | 2021-01-14 22:03 | PC.NURSE ---
Pt arrived 2014. Oriented to room & call system. Lungs clear, SpO2 96% RA Second unit of PRBC's infusing into RAC via pump w/o incidence. Pt requested to be let alone to sleep. Call light w/in reach, bed alarm on for pt safety. Continue w/plan of care.
[2021-01-14] MEDS: PANTOPRAZOLE 40 MG VIAL IV (22:20)
[2021-01-15] VITALS (17 sets, daily range): BP systolic 102–149; BP diastolic 40–87; PULSE 62–81; RESP 12–18; TEMP 36.1–37; O2SAT 94–100; BMI 23.6
--- NOTE | 2021-01-15 | PATH_ITS ---
[facility] Accession Number: [id number] . 01 Material submitted: . PART A: duodenum - DUODENUM PART B: stomach - ANTRUM . 01 Clinical history: . B) RULE OUT H.PYLORI . 02 Diagnosis: A. Duodenum, Biopsy: Active duodenitis with gastric surface foveolar metaplasia and separate fragments of fibrinopurulent exudate consistent with nearby ulcer. Negative for intraepithelial lymphocytosis. Negative for dysplasia and malignancy. . B. Stomach, Antrum, Biopsy: Antral mucosa with mild chronic gastritis. No evidence of Helicobacter on H/E stain. Negative for intestinal metaplasia. Negative for dysplasia and malignancy. . [facility] 01/17/2021 1343 Local . 02 Comment: B. An immunohistochemical stain will be performed to evaluate for Helicobacter organisms and the results reported as an addendum. . 02 Electronically signed: . Christa Bridges MD, Pathologist NPI- [id number] . 01 Gross description: . Part A: DUODENUM: Received in formalin is 1 fragment(s) of rudolph, soft tissue measuring 0.2 x 0.2 x 0.1 cm submitted entirely in 1 cassette(s) Part B: ANTRUM: Received in formalin are 2 fragment(s) of rudolph, soft tissue measuring 0.5 x 0.3 x 0.1 cm to 0.2 x 0.2 x 0.1 cm submitted entirely in 1 cassette(s) /TEA 01/16/2021 0416 Local . 02 Pathologist provided ICD-10: R10.9 . 02 CPT . 508842, 860906, [id number] Performed at: 01 [facility] [address] [place] [address] [address], [place], [place] [id number] MD Seth Azevedo MD Phone: [phone] Performed at: 02 [facility] [id number] [place] [id number] MD Christa Bridges MD Phone: [phone]
--- NOTE | 2021-01-15 01:30 | PC.NURSE ---
0028 2nd unit of PRBC transfused. No signs & symptoms of transfusion reaction noted. Resumed IVF of D5NS @ 100 cc/hr. Will monitor & continue plan of care.
[2021-01-15 05:24] LABS: Hemoglobin 8.6 g/dL (13.5-17.5)
[2021-01-15 05:38] LABS: BUN Creatinine Ratio 37.2 (6-22); Blood Urea Nitrogen 29 mg/dL (9-20); Calcium 7.8 mg/dL (8.4-10.2); Carbon Dioxide 27 mmol/L (22-32); Chloride 111 mmol/L (98-107); Estimated Glomerular Filt Rate > 60.0 mL/min (>60); Glucose 104 mg/dL (80-110); HEMOLYSIS 15 (0-50); Potassium 3.7 mmol/L (3.4-5.1); Sodium 140 mmol/L (137-145)
[2021-01-15 05:46] LABS: Hematocrit 25.1 % (41-53)
--- NOTE | 2021-01-15 08:19 | PM.PN.1 ---
Subjective Subjective Date Patient Seen: 01/15/21 Time Patient Seen: 08:20 Interval history: Patient with an uneventful night an evening. Received his 2 units of packed red cells. Blood count is a bit lower than expected this morning No cardiac symptoms Troponin trended down although still minimally abnormal No new issues or problems Exam Vital Signs (past 8 hours): - 01/15/21 00:28 01/15/21 05:00 Temperature 97.7 F 97.8 F Pulse Rate 71 71 Respiratory Rate 18 18 Blood Pressure 107/40 L 117/50 L Pulse Oximetry 94 Oxygen Delivery Method Room Air Oxygen Flow Rate 0 Objective Labs Result Diagrams: 01/15/21 05:05 01/15/21 05:05 Labs: Laboratory Results - last 24 hr 01/14/21 01/14/21 01/14/21 12:15 12:15 12:15 WBC 15.8 H RBC 2.26 L Hgb 7.1 L Hct 21.8 L MCV 96.3 MCH 31.2 MCHC 32.4 RDW 14.0 Plt Count 241 Neut % (Auto) 79.2 H Lymph % (Auto) 13.3 L [place] % (Auto) 6.6 Eos % (Auto) 0.2 L Baso % (Auto) 0.7 Neut # (Auto) 94705 H Lymph # (Auto) 2100 [place] # (Auto) 1000 H Eos # (Auto) 0 Baso # (Auto) 100 PT 12.8 H INR 1.1 APTT 20 L Sodium 138 Potassium 4.1 Chloride 107 Carbon Dioxide 24 BUN 46 H Creatinine 0.82 Estimated GFR > 60.0 BUN/Creatinine Ratio 56.1 H Glucose 126 H Calcium 8.4 Total Bilirubin 0.2 AST 26 ALT 16 Alkaline Phosphatase 49 Total Creatine Kinase 67 CK-MB (CK-2) TNP CK-MB (CK-2) Rel Index TNP Troponin I 0.354 H* NT-Pro-B Natriuret Pep Total Protein 5.7 L Albumin 3.2 L Globulin 2.5 Albumin/Globulin Ratio 1.3 Urine Color Urine Appearance Urine pH Ur Specific [place] Urine Protein Urine Glucose (UA) Urine Ketones Urine Occult Blood Urine Nitrate Urine Bilirubin Urine Urobilinogen Ur Leukocyte Esterase Urine RBC Urine WBC Ur Squamous Epith Cells Urine Bacteria Ur Culture Indicated? U Opiates 300ng/mL cut Ur Oxycodone Screen Urine Methadone Screen Ur Barbiturates Screen U Tricyclic Antidepress Ur Phencyclidine Scrn Ur Amphetamines Screen U Methamphetamines Scrn Ur MDMA Scrn (Ecstasy) U Benzodiazepines Scrn Urine Cocaine Screen U Marijuana (THC) Screen SARS-CoV-2 (PCR) Blood Type Antibody Screen Crossmatch 01/14/21 01/14/21 01/14/21 12:15 13:30 13:40 WBC RBC Hgb Hct MCV MCH MCHC RDW Plt Count Neut % (Auto) Lymph % (Auto) [place] % (Auto) Eos % (Auto) Baso % (Auto) Neut # (Auto) Lymph # (Auto) [place] # (Auto) Eos # (Auto) Baso # (Auto) PT INR APTT Sodium Potassium Chloride Carbon Dioxide BUN Creatinine Estimated GFR BUN/Creatinine Ratio Glucose Calcium Total Bilirubin AST ALT Alkaline Phosphatase Total Creatine Kinase CK-MB (CK-2) CK-MB (CK-2) Rel Index Troponin I NT-Pro-B Natriuret Pep 540 H Total Protein Albumin Globulin Albumin/Globulin Ratio Urine Color Urine Appearance Urine pH Ur Specific [place] Urine Protein Urine Glucose (UA) Urine Ketones Urine Occult Blood Urine Nitrate Urine Bilirubin Urine Urobilinogen Ur Leukocyte Esterase Urine RBC Urine WBC Ur Squamous Epith Cells Urine Bacteria Ur Culture Indicated? U Opiates 300ng/mL cut Ur Oxycodone Screen Urine Methadone Screen Ur Barbiturates Screen U Tricyclic Antidepress Ur Phencyclidine Scrn Ur Amphetamines Screen U Methamphetamines Scrn Ur MDMA Scrn (Ecstasy) U Benzodiazepines Scrn Urine Cocaine Screen U Marijuana (THC) Screen SARS-CoV-2 (PCR) Negative Blood Type O Positive Antibody Screen Negative Crossmatch See Detail 01/14/21 01/14/21 01/14/21 14:31 18:32 19:32 WBC RBC Hgb Hct MCV MCH MCHC RDW Plt Count Neut % (Auto) Lymph % (Auto) [place] % (Auto) Eos % (Auto) Baso % (Auto) Neut # (Auto) Lymph # (Auto) [place] # (Auto) Eos # (Auto) Baso # (Auto) PT INR APTT Sodium Potassium Chloride Carbon Dioxide BUN Creatinine Estimated GFR BUN/Creatinine Ratio Glucose Calcium Total Bilirubin AST ALT Alkaline Phosphatase Total Creatine Kinase CK-MB (CK-2) CK-MB (CK-2) Rel Index Troponin I 0.323 H* NT-Pro-B Natriuret Pep Total Protein Albumin Globulin Albumin/Globulin Ratio Urine Color Yellow Urine Appearance Clear Urine pH 5.0 Ur Specific [place] <=1.005 Urine Protein Negative Urine Glucose (UA) Negative Urine Ketones Negative Urine Occult Blood Negative Urine Nitrate Negative Urine Bilirubin Negative Urine Urobilinogen 0.2 Ur Leukocyte Esterase Negative Urine RBC 0-1/hpf Urine WBC 1-5/hpf Ur Squamous Epith Cells 0-1 /hpf Urine Bacteria None seen Ur Culture Indicated? Cult not indicated U Opiates 300ng/mL cut Negative Ur Oxycodone Screen Negative Urine Methadone Screen Negative Ur Barbiturates Screen Negative U Tricyclic Antidepress Negative Ur Phencyclidine Scrn Negative Ur Amphetamines Screen Negative U Methamphetamines Scrn Negative Ur MDMA Scrn (Ecstasy) Negative U Benzodiazepines Scrn Negative Urine Cocaine Screen Negative U Marijuana (THC) Screen Negative SARS-CoV-2 (PCR) Blood Type Antibody Screen Crossmatch 01/14/21 01/15/21 01/15/21 20:50 05:05 05:05 WBC RBC Hgb 8.6 L Hct 25.1 L MCV MCH MCHC RDW Plt Count Neut % (Auto) Lymph % (Auto) [place] % (Auto) Eos % (Auto) Baso % (Auto) Neut # (Auto) Lymph # (Auto) [place] # (Auto) Eos # (Auto) Baso # (Auto) PT INR APTT Sodium 140 Potassium 3.7 Chloride 111 H Carbon Dioxide 27 BUN 29 H Creatinine 0.78 Estimated GFR > 60.0 BUN/Creatinine Ratio 37.2 H Glucose 104 Calcium 7.8 L Total Bilirubin AST ALT Alkaline Phosphatase Total Creatine Kinase CK-MB (CK-2) CK-MB (CK-2) Rel Index Troponin I 0.317 H* NT-Pro-B Natriuret Pep Total Protein Albumin Globulin Albumin/Globulin Ratio Urine Color Urine Appearance Urine pH Ur Specific [place] Urine Protein Urine Glucose (UA) Urine Ketones Urine Occult Blood Urine Nitrate Urine Bilirubin Urine Urobilinogen Ur Leukocyte Esterase Urine RBC Urine WBC Ur Squamous Epith Cells Urine Bacteria Ur Culture Indicated? 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 Presumed upper GI bleed-continue with proton pump inhibitor. Have continued him on clear liquids although anticipating EGD sometime today. Hemoglobin hematocrit improved although not outstanding. Given regional blood shortage without evidence of active bleeding I think I would be comfortable holding off on any additional transfusion at this time. 2. Elevated troponin-patient trended down. Do not think there is active ischemia at this time. Continue to monitor for symptoms. Reviewing patient's record did have a standard treadmill test done in 2019 that was unremarkable. However this was not done with myocardial perfusion any does have baseline ECG abnormalities so there could certainly be some ischemia not identified on that study but at this time that seems unlikely given the degree of anemia and lack of progression in his troponin. Depending on clinical course may well deserve outpatient evaluation including myocardial perfusion imaging 3. Vertigo-patient is yet to be up out of bed to really test this. His blood count is better although not tremendously better. I think that is still the most likely etiology for his vertiginous/lightheaded kind of symptoms. Hopefully endoscopy will show a relatively simple findings such as pyloric or gastric ulcer without evidence of high risk of bleeding and he can be discharged to continue outpatient treatment with proton pump inhibitors etcetera. If high risk features of course we need to monitor longer. If no findings on upper endoscopy than may well require colonoscopy as well. Note: Greater than 20 minutes was spent evaluating the patient on the floor, including examining the patient, discussing clinical course with clinical and nursing staff, reviewing clinical course in the computer, preparing documentation and writing orders for continued management of care, discussing status with family as appropriate, reviewing plans for the next 24 hours with both patient/family and nursing staff as appropriate.
[2021-01-15] MEDS: METOPROLOL ER 50 MG TABLET PO (09:26)
[2021-01-15] MEDS: PANTOPRAZOLE 40 MG VIAL IV ×2 (09:26→21:10)
[2021-01-15] MEDS: SODIUM CHLORIDE 0.9% FLUSH 10 ML IV ×2 (09:27→09:29)
[2021-01-15] MEDS: DEXTROSE 5%-0.9% NS 1,000 ML 100 ML IV (09:27)
--- NOTE | 2021-01-15 09:34 | PC.NURSE ---
Patient alert, oriented, denies pain and nausea. Ambulated down to room 231 to visit spouse. Denies dizziness, gait steady.
--- NOTE | 2021-01-15 11:43 | P.CONS_ITS ---
History of Present Illness Consult details Date Patient Seen: 01/15/21 Time Patient Seen: 11:44 Chief complaint: vertigo, shortness of breath Reason for consult: GI bleed Requesting provider: Mian Pryor Narrative: Under a lot of stress due to chronic illness of . [place] light headed, notice dark color of stools. Had previous peptic ulcer disease years ago. Presented anemic. Has had transfusion. No active bleeding at this time. No pain. Meds Home Medications and Allergies Home Medications Medication Instructions Recorded Confirmed Type Calcium 2 tab PO DAILY 03/08/20 01/14/21 History Green Tea 1 tab PO DAILY 03/08/20 01/14/21 History Vitamin A 1 tab PO DAILY 03/08/20 01/14/21 History Vitamin D 1 tab PO Q OTHER DAY 03/08/20 01/14/21 History betamethasone dipropionate 0.05 % 1 applictn TOP DAILY gram 03/08/20 01/14/21 History topical ointment krill oil 500 mg capsule 500 mg PO DAILY cap 03/08/20 01/14/21 History lutein 20 mg tablet 20 mg PO DAILY 03/08/20 01/14/21 History metoprolol succinate 50 mg 50 mg PO DAILY #90 tab 10/04/20 01/14/21 Rx tablet,extended release 24 hr celecoxib 200 mg capsule (Celebrex) 200 mg PO DAILY #30 cap 10/28/20 01/14/21 Rx Allergies Allergy/AdvReac Type Severity Reaction Status Date / Time No Known Drug Allergies Allergy Verified 11/01/20 15:38 Review of Systems Review of Systems Narrative: fatigue ROS: Yes All systems reviewed with the patient and are negative except as otherwise documented Exam Vital Signs (past 8 hours): - 01/15/21 05:00 01/15/21 07:00 01/15/21 07:42 Temperature 97.8 F 98.4 F Pulse Rate 71 68 Respiratory Rate 18 18 Blood Pressure 117/50 L 132/69 Pulse Oximetry 94 97 97 01/15/21 11:14 Temperature 98.1 F Pulse Rate 70 Respiratory Rate 14 Blood Pressure 134/65 Pulse Oximetry 98 Oxygen Delivery Method Room Air Oxygen Flow Rate 0 Narrative Exam Narrative: no acute distress Const General: cooperative and comfortable Nutritional Appearance: average body habitus Orientation: alert and oriented x3 HENMT Head: normal to inspection Ears: external ears normal Nose: external nose normal Face and sinus: normal facial exam Eyes Sclera: sclerae normal Neck Neck: trachea midline Chest Chest: normal inspection of the chest Resp Effort & Inspection: normal respiratory effort and able to speak in complete sentences Cardio Rate: regular rate Rhythm: regular rhythm GI Inspection: normal to inspection Palpation: soft Skin General: no rashes or lesions noted Neuro General: patient alert and patient oriented x3 Cognition: normal cognition Extrem General: normal to inspection and full ROM Psych Appearance: grossly normal and well kempt Attitude: cooperative Judgment: judgment good Objective Labs Result Diagrams: 01/15/21 05:05 01/15/21 05:05 Labs: Laboratory Results - last 24 hr 01/14/21 01/14/21 01/14/21 12:15 12:15 12:15 WBC 15.8 H RBC 2.26 L Hgb 7.1 L Hct 21.8 L MCV 96.3 MCH 31.2 MCHC 32.4 RDW 14.0 Plt Count 241 Neut % (Auto) 79.2 H Lymph % (Auto) 13.3 L [place] % (Auto) 6.6 Eos % (Auto) 0.2 L Baso % (Auto) 0.7 Neut # (Auto) 71823 H Lymph # (Auto) 2100 [place] # (Auto) 1000 H Eos # (Auto) 0 Baso # (Auto) 100 PT 12.8 H INR 1.1 APTT 20 L Sodium 138 Potassium 4.1 Chloride 107 Carbon Dioxide 24 BUN 46 H Creatinine 0.82 Estimated GFR > 60.0 BUN/Creatinine Ratio 56.1 H Glucose 126 H Calcium 8.4 Total Bilirubin 0.2 AST 26 ALT 16 Alkaline Phosphatase 49 Total Creatine Kinase 67 CK-MB (CK-2) TNP CK-MB (CK-2) Rel Index TNP Troponin I 0.354 H* NT-Pro-B Natriuret Pep Total Protein 5.7 L Albumin 3.2 L Globulin 2.5 Albumin/Globulin Ratio 1.3 Urine Color Urine Appearance Urine pH Ur Specific [place] Urine Protein Urine Glucose (UA) Urine Ketones Urine Occult Blood Urine Nitrate Urine Bilirubin Urine Urobilinogen Ur Leukocyte Esterase Urine RBC Urine WBC Ur Squamous Epith Cells Urine Bacteria Ur Culture Indicated? U Opiates 300ng/mL cut Ur Oxycodone Screen Urine Methadone Screen Ur Barbiturates Screen U Tricyclic Antidepress Ur Phencyclidine Scrn Ur Amphetamines Screen U Methamphetamines Scrn Ur MDMA Scrn (Ecstasy) U Benzodiazepines Scrn Urine Cocaine Screen U Marijuana (THC) Screen SARS-CoV-2 (PCR) Blood Type Antibody Screen Crossmatch 01/14/21 01/14/21 01/14/21 12:15 13:30 13:40 WBC RBC Hgb Hct MCV MCH MCHC RDW Plt Count Neut % (Auto) Lymph % (Auto) [place] % (Auto) Eos % (Auto) Baso % (Auto) Neut # (Auto) Lymph # (Auto) [place] # (Auto) Eos # (Auto) Baso # (Auto) PT INR APTT Sodium Potassium Chloride Carbon Dioxide BUN Creatinine Estimated GFR BUN/Creatinine Ratio Glucose Calcium Total Bilirubin AST ALT Alkaline Phosphatase Total Creatine Kinase CK-MB (CK-2) CK-MB (CK-2) Rel Index Troponin I NT-Pro-B Natriuret Pep 540 H Total Protein Albumin Globulin Albumin/Globulin Ratio Urine Color Urine Appearance Urine pH Ur Specific [place] Urine Protein Urine Glucose (UA) Urine Ketones Urine Occult Blood Urine Nitrate Urine Bilirubin Urine Urobilinogen Ur Leukocyte Esterase Urine RBC Urine WBC Ur Squamous Epith Cells Urine Bacteria Ur Culture Indicated? U Opiates 300ng/mL cut Ur Oxycodone Screen Urine Methadone Screen Ur Barbiturates Screen U Tricyclic Antidepress Ur Phencyclidine Scrn Ur Amphetamines Screen U Methamphetamines Scrn Ur MDMA Scrn (Ecstasy) U Benzodiazepines Scrn Urine Cocaine Screen U Marijuana (THC) Screen SARS-CoV-2 (PCR) Negative Blood Type O Positive Antibody Screen Negative Crossmatch See Detail 01/14/21 01/14/21 01/14/21 14:31 18:32 19:32 WBC RBC Hgb Hct MCV MCH MCHC RDW Plt Count Neut % (Auto) Lymph % (Auto) [place] % (Auto) Eos % (Auto) Baso % (Auto) Neut # (Auto) Lymph # (Auto) [place] # (Auto) Eos # (Auto) Baso # (Auto) PT INR APTT Sodium Potassium Chloride Carbon Dioxide BUN Creatinine Estimated GFR BUN/Creatinine Ratio Glucose Calcium Total Bilirubin AST ALT Alkaline Phosphatase Total Creatine Kinase CK-MB (CK-2) CK-MB (CK-2) Rel Index Troponin I 0.323 H* NT-Pro-B Natriuret Pep Total Protein Albumin Globulin Albumin/Globulin Ratio Urine Color Yellow Urine Appearance Clear Urine pH 5.0 Ur Specific [place] <=1.005 Urine Protein Negative Urine Glucose (UA) Negative Urine Ketones Negative Urine Occult Blood Negative Urine Nitrate Negative Urine Bilirubin Negative Urine Urobilinogen 0.2 Ur Leukocyte Esterase Negative Urine RBC 0-1/hpf Urine WBC 1-5/hpf Ur Squamous Epith Cells 0-1 /hpf Urine Bacteria None seen Ur Culture Indicated? Cult not indicated U Opiates 300ng/mL cut Negative Ur Oxycodone Screen Negative Urine Methadone Screen Negative Ur Barbiturates Screen Negative U Tricyclic Antidepress Negative Ur Phencyclidine Scrn Negative Ur Amphetamines Screen Negative U Methamphetamines Scrn Negative Ur MDMA Scrn (Ecstasy) Negative U Benzodiazepines Scrn Negative Urine Cocaine Screen Negative U Marijuana (THC) Screen Negative SARS-CoV-2 (PCR) Blood Type Antibody Screen Crossmatch 01/14/21 01/15/21 01/15/21 20:50 05:05 05:05 WBC RBC Hgb 8.6 L Hct 25.1 L MCV MCH MCHC RDW Plt Count Neut % (Auto) Lymph % (Auto) [place] % (Auto) Eos % (Auto) Baso % (Auto) Neut # (Auto) Lymph # (Auto) [place] # (Auto) Eos # (Auto) Baso # (Auto) PT INR APTT Sodium 140 Potassium 3.7 Chloride 111 H Carbon Dioxide 27 BUN 29 H Creatinine 0.78 Estimated GFR > 60.0 BUN/Creatinine Ratio 37.2 H Glucose 104 Calcium 7.8 L Total Bilirubin AST ALT Alkaline Phosphatase Total Creatine Kinase CK-MB (CK-2) CK-MB (CK-2) Rel Index Troponin I 0.317 H* NT-Pro-B Natriuret Pep Total Protein Albumin Globulin Albumin/Globulin Ratio Urine Color Urine Appearance Urine pH Ur Specific [place] Urine Protein Urine Glucose (UA) Urine Ketones Urine Occult Blood Urine Nitrate Urine Bilirubin Urine Urobilinogen Ur Leukocyte Esterase Urine RBC Urine WBC Ur Squamous Epith Cells Urine Bacteria Ur Culture Indicated? U Opiates 300ng/mL cut Ur Oxycodone Screen Urine Methadone Screen Ur Barbiturates Screen U Tricyclic Antidepress Ur Phencyclidine Scrn Ur Amphetamines Screen U Methamphetamines Scrn Ur MDMA Scrn (Ecstasy) U Benzodiazepines Scrn Urine Cocaine Screen U Marijuana (THC) Screen SARS-CoV-2 (PCR) Blood Type Antibody Screen Crossmatch Assessment & Plan Assessment & Plan narrative: anemia of chronic blood loss likely upper GI. agree with EGD today and if no etiology then bowel prep and colonoscopy. Even though this gentleman is 80 yo, he is in excellent condition and should be offered screening colonoscopy. COVID-19 COVID-19 status: Negative Time Spent With Patient Time with patient: 15-24 minutes
[2021-01-15] MEDS: LACTATED RINGERS 1,000 ML 42 ML IV ×2 (15:54→17:14)
--- NOTE | 2021-01-15 16:49 | PC.NURSE ---
Addendum entered by Jenifer Dawson R.N. 01/15/21 21:58: Pt presents anxious/irritated w/staff & situation. Pt wanting to be D/C'd. Message to Dr Manriquez & Dr. Mendieta. IVF @ 42cc/hr infusing as per orders. Tele showing NSR/BBB Pt requesting to be left to sleep. Call light w/in reach, pt calls appropriately for needs, Continue w/plan of care. Addendum entered by Jenifer Dawson R.N. 01/15/21 18:37: Pt appears irritated that he has not been discharged. Refuses tele replacement Insisting that RN call MD Call placed to Dr. Manriquez at 1830 Addendum entered by Jenifer Dawson R.N. 01/15/21 18:15: Returned from PACU awake/oriented. IVF connected, Tele placed back on. Cl liquid dinner given VSS at this time Original Note: Pt left for scope at 1500, Escorted by OR staff.
--- NOTE | 2021-01-15 17:03 | CM.DPC ---
Patient is an 80 yo male who was admitted on 01/14/21 for vertigo. Pt has PRE MCR for insurance and his PCP is Dr. Pryor. EMR was reviewed. Per MD, pt with G.I. bleed and needing transfusion and Surgeon to Consult. Per Surgeon, anemia of chronic blood loss likely upper GI. agree with EGD today and if no etiology then bowel prep and colonoscopy. Per RN, pt off floor for scope and awaiting to determine if colonoscopy will be scheduled. No bedside assessment at this time due to triage needs. Plan: SW to follow after EGD to determine if colonoscopy needed towards determining d/c planning needs. TRISTAN Chavez
--- NOTE | 2021-01-15 18:47 | PM.OP.ENDO ---
Operative Date/Time/Diagnoses Date of procedure: 01/15/21 Time of procedure: 19:00 Pre-op diagnosis: Upper GI bleed, symptomatic anemia Post-op diagnosis: same Procedure & Clinicians Study performed: EGD w MAC, cold forcep biopsy of duodenum and antral(H.pylori) Same procedure as scheduled: Yes Indications: anemia, dark stools Surgeon: Gabrielle Manriquez Procedure Notes SCOAP/Timeout: done Procedure in detail: Preop diagnosis: Symptomatic anemia and dark stools Postop diagnosis: Same Operative procedure EGD with cold forceps biopsy Surgeon: Sondra Manriquez MD Anesthesiologist: Herminia Nava MD Findings: of mild gastritis, no gastric ulcers. Duodenitis without ulceration. No active bleeding. No hiatal hernia. Normal esophagus Procedure: Patient is placed in a lateral position. Anesthetic was given. I then intubated into the esophagus advanced to the stomach identified pylorus intubated and the duodenum. Insufflation and extraction of the scope including retroflexed in the stomach and the above findings. Biopsies were taken of the duodenum which was grossly inflamed but not ulcerated. No active bleeding. Biopsy taken also of the antrum of the stomach which showed mild gastritis. Will be sent for H pylori. Impression: Duodenitis and mild gastritis. Possibly source of his anemia. Plan: Continue PPI per Dr. Pryor Findings: gastritis and other findings (duodenitis) Specimen(s): other (duodenal bx and antral bx(x2)) Complications: none Post-procedure Recommendations: No ASA/NSAIDS Follow up: as needed Disposition: PACU
[2021-01-16 00:20] VITALS: BP 132/53; PULSE 91; RESP 18; TEMP 36.6; O2SAT 97
[2021-01-16 00:25] VITALS: O2SAT 97
[2021-01-16 04:50] VITALS: BP 122/57; PULSE 73; RESP 18; TEMP 36.5; O2SAT 95
[2021-01-16 05:33] LABS: Hematocrit 23.5 % (41-53)
[2021-01-16] MEDS: FERROUS SULFATE 325 MG TABLET PO (08:18)
[2021-01-16] MEDS: PANTOPRAZOLE DR 40 MG TABLET PO (08:19)
--- NOTE | 2021-01-16 08:26 | P.DS_ITS ---
History of Present Illness History of Present Illness Date Patient Seen: 01/16/21 Time Patient Seen: 08:26 Chief complaint: vertigo, shortness of breath Narrative: 80-year-old male admitted via the emergency department with symptoms of dizziness as well as shortness of breath. His spouse is currently hospitalized with complications related to her poorly characterized lymphoma and he has been under a great deal stress regarding this, over the last month or more He called my office complaining of weakness and some shortness of breath as well as a sense of dizziness maybe even some numbness and tingling left greater than right. We directed him to the emergency department worries found to be quite anemic. He says he had very loose diarrheal stool on the and 12 of January that was very dark/black in color. He has not had a bowel movement since the 12 of January.. Denies any other GI symptoms including lack of upper stomach or abdominal pain or discomfort. No nausea vomiting Discharge Providers Provider Date of admission: 01/14/21 14:34 Discharge Date: 01/16/21 Primary care physician: Mian Pryor MD Consults: 01/14/21 20:20 Consult to General Surgery Routine Comment: Consulting Provider: Dami Mccartney Reason for consultation: GI bleed Has provider been notified: Yes Discharge provider: Mian Pryor MD Summary Hospital Course Discharge Diagnosis: 1. Acute blood loss anemia 2. Acute upper GI bleeding 3. Duodenitis S source of upper GI bleeding 4. Chronic back pain Hospital Course: Patient is admitted to the hospital where he was monitored. He received proton pump inhibitor and red blood cell transfusion emergency department. He showed no evidence of large volume bleeding and remained hemodynamically stable. He underwent upper endoscopy on the 15 of January. This showed evidence of duodenitis as likely source of bleeding. Blood counts remained relatively stable. Again no evidence of active large volume bleeding. Therefore patient was felt to be stable for discharge to continue treatment of duodenitis with proton pump inhibitor as an outpatient as well as iron supplementation to assist with correction of his anemia Patient's blood pressure is somewhat on the lower side during this hospitalization. However patient will continue on his metoprolol given his borderline troponin Patient's troponin remained minimally abnormal but trended downward. No evidence of active ischemia. I believe his elevated troponin most likely due to some demand ischemia secondary to his significant anemia. Patient will have an outpatient stress test when his blood count is improved. Status at Discharge Cognitive/behavioral status at discharge: oriented Functional status at discharge: independent ambulation Overall status at discharge: patient is progressing back to baseline Time Spent with Patient Time spent: Greater than 30 minutes Exam Vital Signs (past 8 hours): - 01/16/21 04:50 Temperature 97.7 F Pulse Rate 73 Respiratory Rate 18 Blood Pressure 122/57 L Pulse Oximetry 95 Oxygen Delivery Method Room Air Oxygen Flow Rate 0 Objective Labs Result Diagrams: 01/16/21 04:40 01/15/21 05:05 Labs: Laboratory Results - last 24 hr 01/16/21 04:40 Hgb 8.0 L Hct 23.5 L PFSH Medical History Allergic rhinitis, unspecified (01/29/11) Anemia, unspecified Chronic back pain (~2004) Diverticula of colon Essential hypertension Facet arthropathy, lumbar 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) Melanoma (~2016) Mixed hyperlipidemia Retinal detachment (~2001) Spondylolisthesis at L4-L5 level Tinnitus (~2014) Surgical History Anesthesia History of spinal surgery Social History household members: spouse Smoking Status: Former smoker Discharge Assessment & Plan Assessment and Plan Plan of Treatment: Patient will continue on proton pump inhibitors for least 2 weeks Patient will continue on iron Patient be seen in the outpatient clinic in about 2 weeks with plans to repeat CBC etcetera Patient will eventually benefit from cardiac stress testing as well although unl ess there is additional issues in the near term plan to do this once his anemia is corrected Discharge Plan Discharge Plan Patient Disposition: Home Discharge orders & Medications Prescriptions: New ferrous sulfate 325 mg (65 mg iron) Tablet 325 mg PO BIDWM Qty: 150 RF: 3 pantoprazole 40 mg tablet,delayed release (DR/EC) 40 mg PO BID Qty: 60 RF: 3 metoprolol succinate 50 mg tablet extended release 24 hr 50 mg PO DAILY Qty: 90 RF: 3 Continued betamethasone dipropionate 0.05 % ointment 1 applictn TOP DAILY RF: 0 Vitamin A 1 tab PO DAILY RF: 0 Vitamin D 1 tab PO Q OTHER DAY RF: 0 lutein 20 mg tablet 20 mg PO DAILY RF: 0 krill oil 500 mg capsule 500 mg PO DAILY RF: 0 Calcium 2 tab PO DAILY RF: 0 Green Tea 1 tab PO DAILY RF: 0 Discontinued metoprolol succinate 50 mg tablet extended release 24 hr 50 mg PO DAILY Qty: 90 RF: 2 celecoxib [Celebrex] 200 mg capsule 200 mg PO DAILY Qty: 30 RF: 2 Follow up/Referrals: Mian Pryor MD [Primary Care Provider] - 2 Weeks Discharge Health Status Multidrug resistant organism: No MDRO Diet/Activity/Treatments Diet: Diet as Tolerated and Regular Visit Report/Discharge Packet Instructions: DI for Gastritis Discharge Data Primary Care Provider: Mian Pryor
--- NOTE | 2021-01-16 10:00 | CM.MNRNOTE ---
Pt is dressed and ready for discharge home with son. IV's have been removed. Went over d/c instructions with Pt-discussed d/c meds, time of last dose, reviewed stroke education, dietary changes and follow up. New prescription sent to [facility] per Pt request. Pt out via w/c by [employer] to Son with all belongings.
--- NOTE | 2021-01-16 12:45 | CM.DPNOTE ---
DC Note Patient DC today, home w/son. Patient's is also admitted on the acute care floor and patient eager to be discharged. No needs identified from this [employer] today, home w/supportive family. Patient ambulating in room JW
== END 2021-01-16 10:03 | disposition home or self-care (01) | DRG 378 ==
LOC: ED 14:35 → AC 15:35
PROVIDERS: Surgery; Admitting Provider Internal Medicine; Emergency Provider Emergency Medicine; PCP Internal Medicine; Referring Provider Emergency Medicine; Visit Provider Internal Medicine
PROC: 0DJ08ZZ Inspection of Upper Intestinal Tract, Via Natural or Artificial Opening Endoscopic (ICD-10-PCS; CPT 43235; principal; 2021-01-15 15:30)
DX: K29.81 Duodenitis with bleeding (principal); D62 Acute posthemorrhagic anemia; I24.8 Other forms of acute ischemic heart disease; K29.70 Gastritis, unspecified, without bleeding; R42 Dizziness and giddiness; I10 Essential (primary) hypertension; E78.2 Mixed hyperlipidemia; G89.29 Other chronic pain; M54.9 Dorsalgia, unspecified; Z87.891 Personal history of nicotine dependence; Z20.822 Contact with and (suspected) exposure to COVID-19
CPT/HCPCS: 36415; 36430; 43239; 70450; 74177; 80048; 80053; 80305; 81001; 82550; 82962; 83880; 84484; 85014; 85018; 85025; 85610; 85730; 86850; 86900; 86901; 87635; 93005; 96361; 96374; 99223; 99232; 99238; 99285; 99291; 99292; C9803; P9016; C9113; J3010; Q9967

== ENCOUNTER 2021-01-20 10:30 | Observation (INO) | payer MEDICARE, SELFPAY ==
[2021-01-14 20:39] VITALS: BMI 23.6
[2021-01-20] VITALS (17 sets, daily range): BP systolic 107–167; BP diastolic 56–81; PULSE 63–86; RESP 14–25; TEMP 36.2–37.2; O2SAT 94–100; BMI 52.0
[2021-01-20] MEDS: SODIUM CHLORIDE 0.9% 1,000 ML 150 ML IV (12:19)
[2021-01-20 12:30] LABS: Add Manual Diff / Slide Review NO; Basophils Absolute Auto 0 /uL (0-100); Basophils Percent Auto 0.4 % (0-2); Eosinophils Absolute Auto 0 /uL (0-450); Eosinophils Percent Auto 0.3 % (2-4); Hematocrit 28.6 % (41-53); Hemoglobin 9.7 g/dL (13.5-17.5); Lymphocytes Absolute Auto 700 /uL (1100-4500); Lymphocytes Percent Auto 6.5 % (25-40); Mean Corpuscular HGB Conc 33.9 % (30-36); Mean Corpuscular Hemoglobin 31.6 PG (26-34); Mean Corpuscular Volume 93.4 fL (80-100); Monocytes Absolute Auto 700 /uL (0-900); Monocytes Percent Auto 6.6 % (3-14); Neutrophils Absolute Auto 9500 /uL (1500-7000); Neutrophils Percent Auto 86.2 % (50-75); Platelet Count 281 X10^3/uL (150-400); Red Blood Cell Count 3.07 X10^6/uL (4.5-5.9); Red Cell Distribution Width 15.6 % (11.6-14.8)
[2021-01-20 12:40] LABS: Alanine Aminotransferase 15 IU/L (<50); Albumin 3.3 g/dL (3.5-5.0); Albumin Globulin Ratio 1.2 (1.0-2.8); Alkaline Phosphatase 76 U/L (38-126); Aspartate Aminotransferase 26 IU/L (17-59); BUN Creatinine Ratio 15.5 (6-22); Bilirubin Total 0.6 mg/dL (0.2-1.3); Blood Urea Nitrogen 11 mg/dL (9-20); Calcium 8.3 mg/dL (8.4-10.2); Carbon Dioxide 22 mmol/L (22-32); Chloride 109 mmol/L (98-107); Estimated Glomerular Filt Rate > 60.0 mL/min (>60); Globulin 2.8 g/dL (1.7-4.1); Glucose 94 mg/dL (80-110); HEMOLYSIS < 15 (0-50); Potassium 3.8 mmol/L (3.4-5.1); Sodium 138 mmol/L (137-145); Total Protein 6.1 g/dL (6.3-8.2)
[2021-01-20 12:50] LABS: Troponin I < 0.012 ng/mL (0.01-0.034)
--- NOTE | 2021-01-20 13:16 | ED_ITS ---
HPI - Dizziness General Chief Complaint: Dizziness Stated Complaint: severe dizziness, nausea, ongoing Time Seen by Provider: 01/20/21 13:14 Source: patient, family (Son at bedside) and old records reviewed Mode of arrival: Wheelchair Limitations: no limitations History of Present Illness HPI Narrative: This is a pleasant 80-year-old male who was seen by myself on January 14 for acute GI bleed and dizziness. Patient was hospitalized, received 2 units of packed red blood cells had scopes and was found to have duodenitis. Patient was discharged home on his daily metoprolol as well as pantoprazole and starting iron pills which he has not started. Patient states Wednesday as well as today he had 2 episodes of vertigo like symptoms. He states both episodes occurred while he was standing. He did note movement of his head made it worse. He has been quite off balance and list to 1 side. He states his symptoms are improved when he is lying flat. He did have a quite a severe headache on Wednesday. He denies any headache currently. He had some unfocused vision with the last episode which has resolved. He did appreciate double vision. He has had no active vomiting. He has not had any numbness, tingling or weakness of his extremities that he appreciates. No speech changes. No changes to bowel movements, no bright red or melanotic stools. Patient is not currently anticoagulated. Related Data Home Medications Medication Instructions Recorded Confirmed Calcium 2 tab PO DAILY 03/08/20 01/20/21 Green Tea 1 tab PO DAILY 03/08/20 01/20/21 Vitamin A 1 tab PO DAILY 03/08/20 01/14/21 Vitamin D 1 tab PO Q OTHER DAY 03/08/20 01/20/21 betamethasone dipropionate 0.05 % 1 applictn TOP DAILY gram 03/08/20 01/20/21 topical ointment krill oil 500 mg capsule 500 mg PO DAILY cap 03/08/20 01/20/21 lutein 20 mg tablet 20 mg PO DAILY 03/08/20 01/20/21 Previous Rx's Medication Instructions Recorded ferrous sulfate 325 mg (65 mg 325 mg PO BIDWM #150 tab 01/16/21 iron) tablet metoprolol succinate 50 mg 50 mg PO DAILY #90 tab 01/16/21 tablet,extended release 24 hr pantoprazole 40 mg tablet,delayed 40 mg PO BID #60 tab 01/16/21 release Allergies Allergy/AdvReac Type Severity Reaction Status Date / Time No Known Drug Allergies Allergy Verified 01/20/21 10:40 Review of Systems Review of Systems ROS Unobtainable: All systems reviewed & are unremarkable except as noted in HPI and below 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 Patient is pale. HEENT: Atraumatic, pupils are equal round reactive to light, extraocular movements are intact, nares are clear.. Throat is clear without any exudates, erythema, tonsillar enlargement or uvular deviation, no facial droop. Clear speech. HEART: Regular rate and rhythm without murmur, clicks, rubs. Pulses are equal in upper and lower extremities LUNGS:Lungs clear to auscultation, no wheezes, rales, crackles, chest moves symmetrically ABD:bowel sounds normal, soft, non-tender, no guarding, rebound, rigidity, no masses noted, no hepatosplenomegaly :No CVA tenderness MSCL: Non-tender, no muscle atrophy, muscles strength 5/5 upper and lower extremities, full range of motion. NEURO:CN 2-12 intact, sensation normal, reflexes 2/4 upper and lower extremities. finger nose finger test normal, heel eric test moe SKIN: No rash or erythema other skin changes noted. Initial Vital Signs Initial Vital Signs: Vital Signs Temperature 97.1 F L 01/20/21 10:37 Pulse Rate 63 01/20/21 10:37 Respiratory Rate 14 01/20/21 10:37 Blood Pressure 167/69 H 01/20/21 10:37 Pulse Oximetry 100 01/20/21 10:37 Scores NIH Stroke Scale Level of Conciousness: Alert, keenly responsive Ask month/age: Answers both questions correctly. Open/close eyes, close hand: Performs both tasks correctly Best gaze horizontal: Normal Visual burns: No visual loss Facial palsy: Normal symetrical movement Left arm drift: No drift for full 10 sec Right arm drift: No drift for full 10 sec Left leg drift: No drift for full 5 sec Right leg drift: No drift for full 5 sec Limb ataxia: Absent Sensory on face/arms/legs: Normal, no sensory loss Best language: No aphasia, normal Dysarthria: Normal Extinction or inattention: No abnormality Total NIH Stroke scale score: 0 Course Orders Ordered: ED Orders 01/20/21 10:42 EKG-12 Lead Stat 01/20/21 12:06 Complete Blood Count AUTO DIFF Stat Comprehensive Metabolic Panel Stat Troponin I Stat 01/20/21 13:34 CT head/brain wo con Stat 01/20/21 13:41 CT angio head and neck Stat 01/20/21 15:04 MR stroke Stat 01/20/21 15:09 US carotid doppler BI Stat 01/20/21 15:12 COVID19 - ADMIT (DIRECTOR OF DIRECT MARKETING swab/PCR) Stat 01/20/21 16:39 Consult to Discharge Planning Routine Consult to Occupational Therapy Evaluate & Treat Consult to Physical Therapy Evaluate & Treat Consult to Speech Therapy Evaluate & Treat EC echo doppler complete Urgent Acetaminophen (Acetaminophen 325 Mg Tablet) 650 mg PO Q6HR PRN PRN Reason: Fever/Mild Pain (1-3) Ferrous Sulfate (Ferrous Sulfate 325 Mg Tablet) 325 mg PO BIDWM [facility] Last Admin: 01/20/21 17:53 Dose: 325 mg Documented by: CARISSA Lutein (Vit C/E/Zn/Coppr/Lutein/Zeaxan Capsule) 1 cap PO DAILY TOMASA Metoprolol Succinate (Metoprolol Er 50 Mg Tablet) 50 mg PO DAILY TOMASA Pantoprazole Sodium (Pantoprazole Dr 40 Mg Tablet) 40 mg PO BID TOMASA Discontinued Medications Sodium Chloride (Normal Saline 0.9%) 1,000 mls @ 150 mls/hr IV CONT TOMASA Last Infusion: 01/20/21 16:43 Dose: 150 mls/hr Documented by: [email or web address] Admin: 01/20/21 12:19 Dose: 150 mls/hr Documented by: MIKI Consultations Consultation #1: Dr. Che, from [facility] recommends usual stroke workup and observation. An anti-platelet therapy once patient's GI bleed is well controlled. Consultation #2: Dr. Pryor, accepts for CVA. No asa which I agree with suspect cva either from acute ischemia from anemia consistent patients demand ischemia after acute GI bleed and symptomatic anemia earlier this month. Discussed our recommendations from [facility]. Vital Signs Vital signs: Vital Signs - 8 hr 01/20/21 11:46 01/20/21 12:00 01/20/21 12:23 Pulse Rate 69 71 66 Respiratory Rate 18 19 18 Blood Pressure 120/56 L Pulse Oximetry 100 99 01/20/21 12:30 01/20/21 12:31 01/20/21 13:00 Pulse Rate 67 65 69 Respiratory Rate 22 23 23 Blood Pressure 148/67 H 133/62 Pulse Oximetry 01/20/21 13:30 01/20/21 13:52 01/20/21 14:00 Pulse Rate 75 82 Respiratory Rate 24 Blood Pressure 132/63 131/64 115/57 L Pulse Oximetry 99 01/20/21 14:30 01/20/21 15:00 Pulse Rate 68 74 Respiratory Rate 23 25 H Blood Pressure Pulse Oximetry 100 100 MDM - Dizziness Lab Data Result diagrams: 01/20/21 12:06 01/20/21 12:06 Labs: Lab Results 01/20/21 01/20/21 01/20/21 Range/Units 12:06 12:06 15:12 WBC 11.0 (4.5-11.0) X10^3/uL RBC 3.07 L (4.5-5.9) X10^6/uL Hgb 9.7 L (13.5-17.5) g/dL Hct 28.6 L (41-53) % MCV 93.4 (80-100) fL MCH 31.6 (26-34) PG MCHC 33.9 (30-36) % RDW 15.6 H (11.6-14.8) % Plt Count 281 (150-400) X10^3/uL Neut % (Auto) 86.2 H (50-75) % Lymph % (Auto) 6.5 L (25-40) % [place] % (Auto) 6.6 (3-14) % Eos % (Auto) 0.3 L (2-4) % Baso % (Auto) 0.4 (0-2) % Neut # (Auto) 9500 H (7111-2959) /uL Lymph # (Auto) 700 L (1866-1513) /uL [place] # (Auto) 700 (0-900) /uL Eos # (Auto) 0 (0-450) /uL Baso # (Auto) 0 (0-100) /uL Sodium 138 (137-145) mmol/L Potassium 3.8 (3.4-5.1) mmol/L Chloride 109 H (98-107) mmol/L Carbon Dioxide 22 (22-32) mmol/L BUN 11 (9-20) mg/dL Creatinine 0.71 (0.66-1.25) mg/dL Estimated GFR > 60.0 (>60) mL/min BUN/Creatinine Ratio 15.5 (6-22) Glucose 94 (80-110) mg/dL Calcium 8.3 L (8.4-10.2) mg/dL Total Bilirubin 0.6 (0.2-1.3) mg/dL AST 26 (17-59) IU/L ALT 15 (<50) IU/L Alkaline Phosphatase 76 (38-126) U/L Troponin I < 0.012 (0.01-0.034) ng/mL Total Protein 6.1 L (6.3-8.2) g/dL Albumin 3.3 L (3.5-5.0) g/dL Globulin 2.8 (1.7-4.1) g/dL Albumin/Globulin Ratio 1.2 (1.0-2.8) SARS-CoV-2 (PCR) Negative (Negative) Imaging Data CT scan - head: Radiologist's Impression: Riley Sexton ([place]) 80 M [address] [id number] Scan ReportSigned Patient: CarlieRiley PMR#: [id number]: 1940Acct:[id number]/Sex: 80 / MDate of Service: 01/20/21Loc: EDAccession Number: [id number] Procedure: CT head/brain wo con Ordering Provider: Ellen Cortes D.O. PROCEDURE: CT HEAD/BRAIN WO CON INDICATIONS: vertigo, new onset. TECHNIQUE: Noncontrast 4.5 mm thick angled axial sections acquired from the foramen magnum to the vertex, with coronal and sagittal reformats. For radiation dose reduction, the following was used: automated exposure control, adjustment of mA and/or kV according to patient size. COMPARISON: [facility], CT, CT ANGIO HEAD AND NECK, 01/20/2021, 13:42. [facility], CT, CT HEAD/BRAIN WO CON, 01/14/2021, 12:31. FINDINGS: Image quality: Excellent. Multiple foci of hypoattenuation in the right cerebellar hemisphere is new from 01/14/2021 exam. An additional hypoattenuating focus in the left cerebellar hemisphere is new from that exam also. There is also focus of hypoattenuation in the right thalamus which is more conspicuous on the current study. 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 No acute intracranial hemorrhage. No findings of mass effect or midline shift. Patent basilar cisterns. Mild ex vacuo ventricular dilatation as a function of global cerebral volume loss. Intracranial atherosclerosis involving both vertebral arteries and carotid arteries. Paranasal sinuses and mastoid air cells are clear. No gross orbital abnormality. Regional osseous structures intact. IMPRESSION: Multiple foci of hypoattenuation in both cerebellar hemispheres which are new from 01/14/2021 exam and likely reflect subacute infarcts. This correlates with CT angiogram findings in the right vertebral artery and right cerebellar circulation, described on a separately dictated report. Dictated by: Jose Carpio M.D. on 01/20/2021 at 14:09 Approved by: Jose Carpio M.D. on 01/20/2021 at 14:18 CTA - brain/neck: Radiologist's Impression: Riley Sexton) 80 M [address] [id number] Scan ReportSigned Patient: Riley Sexton PMR#: [id number]: 1940Acct:[id number]/Sex: 80 / MDate of Service: 01/20/21Loc: EDAccession Number: [id number] Procedure: CT angio head and neck Ordering Provider: Ellen Cortes D.O. PROCEDURE: CT ANGIO HEAD AND NECK INDICATIONS: vertigo, new onset. CVA? TECHNIQUE: After the administration of intravenous contrast, 1 mm thick sections acquired from the aortic arch through the [place] of [place]. Post-contrast 4.5 mm thick sections then re-acquired from the foramen magnum to the vertex. 3-dimensional wmxfcze-ynxlmicey-vsmurucuqq (MIP) and/or volume rendering reformats were acquired of the central intracranial vasculature and neck separately. COMPARISON: [facility], CT, CT HEAD/BRAIN WO CON, 01/14/2021, 12:31. [facility], CT, CT HEAD/BRAIN WO CON, 01/20/2021, 13:42. FINDINGS: Image quality: Excellent. HEAD CT ANGIOGRAPHY: Anterior circulation: Intracranial internal carotid arteries are normal in size and flow. The flow within the paired anterior cerebral arteries is normal and symmetric. The flow within the middle cerebral arteries is normal and symmetric. The ante rior communicating artery is seen. No aneurysms are seen. Posterior circulation: There is atherosclerotic calcification in the right distal V4 segment. The V4 segment on the right is asymmetrically decreased in opacification and diameter when compared with the left, presumably reflecting inflow stenosis with an element of atherosclerotic narrowing superimposed. The origin of the right anterior inferior cerebellar artery is asymmetrically decreased in opacification throughout its length and the small branches there of are not identified where as those on the left are. NECK CT ANGIOGRAPHY: Carotid system: Standard 3 vessel aortic arch anatomy. Soft plaque and atherosclerotic calcifications in the aortic arch extending into the arch branch vessels without hemodynamically significant stenosis. Mild atherosclerotic plaque and calcification in the common carotid arteries without hemodynamically significant narrowing. Mild narrowing of the bifurcations without hemodynamically significant stenosis. No significant narrowing in the extracranial internal carotid arteries. Posterior circulation: The right vertebral artery appears occluded from level of its origin to the C5-C6 foraminal segment of the artery. There is some minimal opacification of the vertebral artery at this level which is significantly asymmetrically decreased for the remainder of the extracranial segment. Soft tissues: Visualized neck soft tissues demonstrate no suspicious abnormalities. Bones: No suspicious bony lesions. Visualized cervical spine appears normally aligned. 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 Multifocal tandem stenosis along the length of the remaining distal right vertebral artery producing an overall flow limitation to the right cerebellar circulation in particular the anterior inferior cerebellar artery. Carotid circulation is intact with mild atherosclerotic narrowing at the bifurcations and in the carotid siphons. Any quantitative measurements of stenosis were performed using NASCET criteria. Dictated by: Jose Carpio M.D. on 01/20/2021 at 14:18 Approved by: Jose Carpio M.D. on 01/20/2021 at 14:27 ECG Data Attestation: I personally reviewed and interpreted this ECG as follows: Interpretation: Sinus rhythm, with PVCs and premature atrial complexes. Rate of 70 2p are 156 QRS of 144 and QTC of 462. Nonspecific change, patient has right bundle-branch block with similar ST segment changes but not as frequent PVCs. MDM Narrative Medical decision making narrative: This is an 80-year-old male comes in with complaint of vertigo like symptoms he had dizziness when he was here earlier this month with acute GI bleed but describes more vertigo type symptoms starting Wednesday after severe headache. Patient had another episode today that was more prolonged. Patient's neurologic exam he passes but was not ambulated, patient's head CT shows subacute infarct. Angiography shows vertebral artery occlusion as well as multifocal stenosis and this was reviewed with the tele stroke neurologist who recommends platelet therapy but no acute intervention, patient is far outside the window for tPA and likely also showed IR and that vessel he states would not be amenable as it is fully occluded. Patient anticoagulation was deferred as he continues to be closely out from a recent GI bleed and is appropriate at this time to hold. Discussed with patient and son that trying to balance recurrent GI bleed verses stroke treatment will be a delicate balance. Patient excepted by his primary care service for observation and workup. MRI stroke was ordered from the emergency department to facilitate workup. Discharge Plan Departure Patient Disposition: Admitted As Inpatient Clinical Impression: Vertigo, Acute CVA (cerebrovascular accident) Admit Date/Time: 01/20/21 15:24 Admit Provider: Mian Pryor
--- NOTE | 2021-01-20 13:34 | DI.CT.S_ITS ---
PROCEDURE: CT HEAD/BRAIN WO CON INDICATIONS: vertigo, new onset. TECHNIQUE: Noncontrast 4.5 mm thick angled axial sections acquired from the foramen magnum to the vertex, with coronal and sagittal reformats. For radiation dose reduction, the following was used: automated exposure control, adjustment of mA and/or kV according to patient size. COMPARISON: [facility], CT, CT ANGIO HEAD AND NECK, 01/20/2021, 13:42. [facility], CT, CT HEAD/BRAIN WO CON, 01/14/2021, 12:31. FINDINGS: Image quality: Excellent. Multiple foci of hypoattenuation in the right cerebellar hemisphere is new from 01/14/2021 exam. An additional hypoattenuating focus in the left cerebellar hemisphere is new from that exam also. There is also focus of hypoattenuation in the right thalamus which is more conspicuous on the current study. 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 No acute intracranial hemorrhage. No findings of mass effect or midline shift. Patent basilar cisterns. Mild ex vacuo ventricular dilatation as a function of global cerebral volume loss. Intracranial atherosclerosis involving both vertebral arteries and carotid arteries. Paranasal sinuses and mastoid air cells are clear. No gross orbital abnormality. Regional osseous structures intact. IMPRESSION: Multiple foci of hypoattenuation in both cerebellar hemispheres which are new from 01/14/2021 exam and likely reflect subacute infarcts. This correlates with CT angiogram findings in the right vertebral artery and right cerebellar circulation, described on a separately dictated report. Dictated by: Jose Carpio M.D. on 01/20/2021 at 14:09 Approved by: Jose Carpio M.D. on 01/20/2021 at 14:18
--- NOTE | 2021-01-20 13:41 | DI.CT.S_ITS ---
PROCEDURE: CT ANGIO HEAD AND NECK INDICATIONS: vertigo, new onset. CVA? TECHNIQUE: After the administration of intravenous contrast, 1 mm thick sections acquired from the aortic arch through the [place] of [place]. Post-contrast 4.5 mm thick sections then re-acquired from the foramen magnum to the vertex. 3-dimensional zwknnqi-vfgbzapie-dsmegtqpde (MIP) and/or volume rendering reformats were acquired of the central intracranial vasculature and neck separately. COMPARISON: [facility], CT, CT HEAD/BRAIN WO CON, 01/14/2021, 12:31. [facility], CT, CT HEAD/BRAIN WO CON, 01/20/2021, 13:42. FINDINGS: Image quality: Excellent. HEAD CT ANGIOGRAPHY: Anterior circulation: Intracranial internal carotid arteries are normal in size and flow. The flow within the paired anterior cerebral arteries is normal and symmetric. The flow within the middle cerebral arteries is normal and symmetric. The anterior communicating artery is seen. No aneurysms are seen. Posterior circulation: There is atherosclerotic calcification in the right distal V4 segment. The V4 segment on the right is asymmetrically decreased in opacification and diameter when compared with the left, presumably reflecting inflow stenosis with an element of atherosclerotic narrowing superimposed. The origin of the right anterior inferior cerebellar artery is asymmetrically decreased in opacification throughout its length and the small branches there of are not identified where as those on the left are. NECK CT ANGIOGRAPHY: Carotid system: Standard 3 vessel aortic arch anatomy. Soft plaque and atherosclerotic calcifications in the aortic arch extending into the arch branch vessels without hemodynamically significant stenosis. Mild atherosclerotic plaque and calcification in the common carotid arteries without hemodynamically significant narrowing. Mild narrowing of the bifurcations without hemodynamically significant stenosis. No significant narrowing in the extracranial internal carotid arteries. Posterior circulation: The right vertebral artery appears occluded from level of its origin to the C5-C6 foraminal segment of the artery. There is some minimal opacification of the vertebral artery at this level which is significantly asymmetrically decreased for the remainder of the extracranial segment. Soft tissues: Visualized neck soft tissues demonstrate no suspicious abnormalities. Bones: No suspicious bony lesions. Visualized cervical spine appears normally aligned. 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 Multifocal tandem stenosis along the length of the remaining distal right vertebral artery producing an overall flow limitation to the right cerebellar circulation in particular the anterior inferior cerebellar artery. Carotid circulation is intact with mild atherosclerotic narrowing at the bifurcations and in the carotid siphons. Any quantitative measurements of stenosis were performed using NASCET criteria. Dictated by: Jose Carpio M.D. on 01/20/2021 at 14:18 Approved by: Jose Carpio M.D. on 01/20/2021 at 14:27
--- NOTE | 2021-01-20 15:04 | DI.MRI.S_ITS ---
PROCEDURE: MR STROKE Pre- and post-contrast brain MRI, non-contrast brain MR angiogram, pre- and postcontrast neck MR angiogram INDICATIONS: cva, cerebellar. TECHNIQUE: Brain: Noncontrast axial T1 spin echo, axial T2 fast spin echo, sagittal and axial FLAIR, coronal T2 fast spin echo, axial gradient echo, axial diffusion and ADC through the brain. After the administration of contrast, axial 3D VIBE of the cranial vasculature and brain. Brain MRA: Non-contrast 3-D time of flight MR angiogram, with multiple yewyeqt-vgbfzbavp-poalafcqyl (MIP) reformats performed. Neck MRA: Axial and sagittal TruFISP through the neck. Coronal dynamic MR angiogram during administration of contrast in the arterial and venous phases, with 3-dimenstional mfasyec-fsqrogmia-nrjnwlptvq (MIP) reformats constructed from subtraction images. COMPARISON: [facility], CT, CT HEAD/BRAIN WO CON, 01/20/2021, 13:42. FINDINGS: Image quality: Excellent. BRAIN: CSF spaces: Ventricles are normal in size and shape. Basal cisterns are patent. No extra-axial fluid collections. Brain: No intracranial bleeds or mass effects. Mild diffuse cerebral volume loss. Mild degree of patchy high FLAIR signal within the periventricular and subcortical white matter. Castillo-white matter interface is normal. Diffusion weighted images demonstrate multifocal regions of elevated signal intensity within the periventricular white matter of the left parietal occipital lobe anteromedially, the left temporal occipital lobe, left temporal lobe, and bilateral cerebellar hemispheres. These lesions demonstrate moderate FLAIR signal elevation and low ADC map signal. Brainstem appears normal. Normal intravascular flow voids are present. No abnormal intracranial enhancement. Skull and face: Calvarial marrow signal is normal. Orbits appear normal. Sinuses: Sinuses and mastoids are clear. BRAIN MR ANGIOGRAM: Anterior circulation: Multifocal mild and moderate stenosis within the cavernous segments of the internal carotid arteries bilaterally. The flow within the paired anterior cerebral arteries is normal and symmetric. The flow within the middle cerebral arteries is normal and symmetric. The anterior communicating artery is seen. Posterior circulation: Normal flow within the distal left vertebral artery. Moderately to severely reduced flow within the distal right vertebral artery. Moderately reduced flow within the mid basilar artery. origin of the right posterior cerebral artery. NECK MR ANGIOGRAM: Carotids: Great vessels demonstrate a conventional anatomy as they arise from the aortic arch. The origins of the common carotid arteries appear patent. The calibers and courses of both common carotid arteries are normal. There is mild, roughly 40% stenosis of the proximal right internal carotid artery. Left internal carotid artery is patent. Posterior circulation: Right vertebral artery is not seen proximally, possibly indicating small caliber or thrombus. There is mild to moderate diffuse stenosis of the distal right vertebral artery. There is moderate to high-grade origin stenosis of the left vertebral artery, which is otherwise patent. Miscellaneous: Subclavian arteries appear patent. Pre-contrast images through the neck show no soft tissue abnormalities. IMPRESSION: BRAIN MRI: 1. Multifocal subacute infarcts within the posterior cerebral hemispheres and cerebellar hemispheres. 2. Volume loss and small vessel ischemic disease. BRAIN MR ANGIOGRAM: 1. Reduced flow within the right vertebral and basilar arteries, consistent with partial stenosis/partial thrombus . 2. Bilateral internal carotid artery stenosis. NECK MR ANGIOGRAM: 1. Mild right internal carotid artery stenosis. No left internal carotid artery stenosis. 2. No flow is seen within the proximal right vertebral artery which may indicate occlusion, thrombus, or dissection. 3. Left vertebral artery origin stenosis as above. Findings discussed with Dr. Ana Tam MD Dictated by: Tone Chino M.D. on 01/20/2021 at 16:10 Approved by: Tone Chino M.D. on 01/20/2021 at 16:19
--- NOTE | 2021-01-20 15:09 | DI.US.S_ITS ---
PROCEDURE: US CAROTID DOPPLER BI INDICATIONS: CVA TECHNIQUE: Color and pulse Doppler interrogation was performed of both carotid systems, with image documentation and velocity measurements. COMPARISON: [facility], MR, MR STROKE, 01/20/2021, 15:21. [facility], CT, CT ANGIO HEAD AND NECK, 01/20/2021, 13:42. FINDINGS: Stenosis calculations are based on SRU (Society of Radiologists in Ultrasound) criteria. Right side: Brachial blood pressure: 147/68 mm Hg. Common carotid artery peak systolic velocity: 104 cm/sec. Internal carotid artery peak systolic velocity: 160 cm/sec. Internal carotid artery end diastolic velocity: 46 cm/sec. External carotid artery peak systolic velocity: 211 cm/sec. ICA/CCA peak systolic ratio: 1.5 Castillo scale imaging description: Moderate atherosclerotic changes are seen. Percent internal carotid artery stenosis: 50-69% by velocity criteria Vertebral artery: Flow direction is antegrade. Left side: Brachial blood pressure: 142/62 mm Hg. Common carotid artery peak systolic velocity: 106 cm/sec. Internal carotid artery peak systolic velocity: 116 cm/sec. Internal carotid artery end diastolic velocity: 32 cm/sec. External carotid artery peak systolic velocity: 199 cm/sec. ICA/CCA peak systolic ratio: 1.1 Castillo scale imaging description: Moderate atherosclerotic changes can be seen. Percent internal carotid artery stenosis: Less than 50% by velocity criteria Vertebral artery: Flow direction is antegrade. IMPRESSION: 50-69% stenosis seen within the right internal carotid artery. The vertebral arteries are confirmed to be patent, with antegrade flow. By velocity criteria, there is greater than 50% stenosis seen involving each external carotid artery. Dictated by: Mario Alberto Alba M.D. on 01/20/2021 at 15:40 Approved by: Mario Alberto Alba M.D. on 01/20/2021 at 15:42
[2021-01-20 16:19] LABS: COVID19 - ADMIT (NP swab/PCR) Negative (Negative)
--- NOTE | 2021-01-20 16:39 | DI.ECHO.S_ITS ---
[facility] +---------+ : : [address] [place] [address] : : : : [id number] : : : : Phone: [phone] Echocardiogram Report + + :Name: ENA THOMASON Study Date: 01/21/2021 Height: 68 in : :[facility] ReadingLocation: Weight: 155 lb : : Gender: Male BSA: 1.8 m2 : :: 1940 Age: 80 yrs BP: 151/81 mmHg: :Reason For Study: CVA : :Ordering Physician: JAVON, : :DEN De La Torre Performed By: Pau Duoglas : :Referring: DEN ALEJANDRO : + + Interpretation Summary 1) Normal left ventricular thickness, size, wall motion, and systolic function (EF 60-65%). 2) Normal right ventricular size and function. 3) There is moderate mitral regurgitation. 4) There is moderate aortic stenosis (valve area 1.1cm2, mean gradient 23mmHg, severity ratio 0.29). 5) The right ventricular systolic pressure is estimated to be at least 45 mmHg based on an estimated right atrial pressure of 8 mm Hg. 6) Hypertension present during the study (BP 151/81mmHg). 7) No prior Echo available for comparison. Procedure: A two-dimensional transthoracic echocardiogram with color flow and Doppler was performed. The study quality was technically adequate. There is no prior echocardiogram noted for this patient. The patient was in atrial fibrillation with heart rates between 65-72 bpm during the exam. Left Ventricle: The left ventricle is normal in size and wall thickness. The ejection fraction is estimated to be 60-65%. Left ventricular systolic function appears normal without focal wall motion abnormalities. Diastolic function could not be accurately assessed due to atrial fibrillation. Right Ventricle: The right ventricle is normal in size and function. Atria: The left atrial size is normal. Right atrial size is normal. There is no Doppler evidence for an interatrial shunt. Mitral Valve: The mitral valve leaflets appear mildly thickened, but open well. There is moderate mitral regurgitation. Aortic Valve: The aortic valve is moderately calcified. The aortic valve is trileaflet. There is moderate aortic stenosis. The peak aortic velocity is 3.2 m/sec. The aortic valve mean gradient is 23 mmHg. The calculated aortic valve area is 1.1 cm2. No aortic regurgitation is present. Tricuspid Valve: The tricuspid valve leaflets are thin and pliable. There is mild tricuspid regurgitation. The right ventricular systolic pressure is estimated to be at least 45 mmHg based on an estimated right atrial pressure of 8 mm Hg. Pulmonic Valve: The pulmonic valve is not well seen, but is grossly normal. There is mild pulmonic regurgitation. Great Vessels: The aortic root is normal size. The dimensions of the ascending aorta are normal. The IVC is dilated (diameter is greater than 2.1 cm) yet it collapses greater than 50% with a sniff. This suggests a right atrial pressure of 8 mm Hg. Pericardium/ Pleura There is no pericardial effusion. There is no pleural effusion. MMode/2D Measurements & Calculations LVIDd: 5.3 cm LVOT diam: 2.1 cm LVIDs: 3.2 cm Ao root diam: 3.3 cm FS: 39.8 % asc Aorta Diam: 3.1 cm IVSd: 0.85 cm Ao Arch Diam (Prox Trans): 3.0 cm LVPWd: 1.1 cm LV beth. diameter/BSA (cm/m^2): 2.9 LV sys. diameter/BSA (cm/m^2): 1.7 LA A2 area: 19.8 cm2 RA long axis: 4.5 cm LA A4 area: 17.9 cm2 RA area: 16.4 cm2 LA length (vol): 5.1 cm RA vol: 50.4 ml LA vol: 59.4 ml RA : 27.5 ml/m2 LA vol index: 32.4 ml/m2 IVC diam: 2.1 cm RVD1 (basal): 3.9 cm TAPSE: 2.3 cm Doppler Measurements & Calculations Ao V2 max: 317.8 cm/sec LVOT Max Anastacio: 94.2 cm/sec Ao V2 mean: 226.7 cm/sec LV V1 max P.6 mmHg Ao max P.4 mmHg LV V1 VTI: 20.8 cm Ao mean P.7 mmHg TEA(I,D): 1.0 cm2 Ao V2 VTI: 72.7 cm TEA(V,D): 1.1 cm2 sev ratio: 0.29 TEA indexed to BSA (cm^2/m^2): 0.56 MV E max anastacio: 90.2 cm/sec TR max anastacio: 304.9 cm/sec MV A max anastacio: 88.4 cm/sec TR max P.2 mmHg MV E/A: 1.0 PA V2 max: 112.4 cm/sec Med Peak E' Anastacio: 4.9 cm/sec PA V2 mean: 71.7 cm/sec E/E' med: 18.3 PA mean P.5 mmHg Lat Peak E' Anastacio: 7.3 cm/sec PA pr(Accel): 49.9 mmHg E/E' lat: 12.3 E/e' average: 15.3 MV dec time: 0.21 sec SV(LVOT): 74.4 ml Reading Physician:01:10 PM
--- NOTE | 2021-01-20 16:54 | P.HP_ITS ---
History of Present Illness History of Present Illness Date Patient Seen: 01/20/21 Time Patient Seen: 16:55 Chief complaint: severe dizziness, nausea, ongoing Narrative: 80-year-old male recently admitted to [facility] for symptoms initially of dizziness found to be anemic with evidence of upper GI bleed. Was transfused had upper endoscopy which revealed some duodenitis and was discharged. He at that time claimed that the transfusions seem to make his dizz iness tremendously better, however his was also in the hospital at the same time and he was quite anxious to be able to be discharged to help manage her care, and perhaps symptoms were not quite as improved as he suggested In any event he had worsening of his dizziness, including 2 discrete episodes of pretty classic vertigo on the 18 of January. He did have a severe headache as well on Wednesday the 18 of January. He may have had some visual changes during 1 of these episodes as well on the 18 of January. Currently thinks maybe he is having difficulty reading with some of the lines overlapping but is very unclear about that. He has persistently had some dizziness sees had no further GI symptoms. Part of his presentation last time included some melanotic stools which have not recur red. 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) Melanoma (~2016) Mixed hyperlipidemia Retinal detachment (~2001) Spondylolisthesis at L4-L5 level Tinnitus (~2014) Surgical History Anesthesia History of spinal surgery Family & Social History Social History: household members spouse Safety & Behavioral: Feels Safe in Current Yes Environment Been Physically Hurt or No Threatened By a Person Tobacco & Substance use: Tobacco type cigarettes Smoking Status Former smoker alcohol intake frequency 0-2 drinks per day Substance Use Type does not use Meds Home Medications and Allergies Home Medications Medication Instructions Recorded Confirmed Type Calcium 2 tab PO DAILY 03/08/20 01/20/21 History Green Tea 1 tab PO DAILY 03/08/20 01/20/21 History Vitamin A 1 tab PO DAILY 03/08/20 01/20/21 History Vitamin D 1 tab PO Q OTHER DAY 03/08/20 01/20/21 History betamethasone dipropionate 0.05 % 1 applictn TOP DAILY gram 03/08/20 01/20/21 History topical ointment krill oil 500 mg capsule 500 mg PO DAILY cap 03/08/20 01/20/21 History lutein 20 mg tablet 20 mg PO DAILY 03/08/20 01/20/21 History ferrous sulfate 325 mg (65 mg 325 mg PO BIDWM #150 tab 01/16/21 01/20/21 Rx iron) tablet metoprolol succinate 50 mg 50 mg PO DAILY #90 tab 01/16/21 01/20/21 Rx tablet,extended release 24 hr pantoprazole 40 mg tablet,delayed 40 mg PO BID #60 tab 01/16/21 01/20/21 Rx release Allergies Allergy/AdvReac Type Severity Reaction Status Date / Time No Known Drug Allergies Allergy Verified 01/20/21 10:40 Review of Systems Constitutional Constitutional: Denies excessive sweating, Denies fever(s), Denies headache(s), Denies weakness, Denies weight gain and Denies weight loss Eyes Eyes: Denies change in vision, Denies itchy eyes, Denies loss of vision and Denies other visual disturbances ENT Ears, Nose, Mouth, and Throat: No dysphagia, No headache(s) and No neck pain Cardiovascular Cardiovascular: Denies chest pain, Denies syncope, Denies rapid heart rate, Denies irregular heart rhythm, Denies palpitations, Denies dyspnea, Denies dyspnea on exertion and Denies slow heart rate Respiratory Respiratory: Denies chest congestion, Denies cough, Denies hemoptysis, Denies dyspnea, Denies dyspnea on exertion, Denies stridor and Denies wheezing Gastrointestinal Gastrointestinal: Denies abdominal pain, Denies bloating, Denies change in bowel habits, Denies change in stool character, Denies dysphagia, Denies nausea, Denies vomiting and Denies hematemesis Genitourinary Genitourinary: Denies hematuria, Denies difficulty urinating and Denies urinary frequency Musculoskeletal Musculoskeletal: Denies abnormal gait, Denies myalgias, Denies arthralgias, Denies limited range of motion and Denies neck pain Integumentary/Breasts Skin/Breast: Denies bleeding lesions, Denies change in pigmentation, Denies changing lesions, Denies new lesions, Denies rash, Denies skin swelling, Denies sores and Denies jaundice Neurologic Neurologic: Denies abnormal gait, Denies behavioral changes, Denies confusion, Denies syncope, Denies headache(s), Denies loss of vision, Denies memory loss and Denies weakness Psychiatric Psychiatric: Denies behavioral changes, Denies change in appetite, Denies confusion, Denies difficulty concentrating, Denies auditory hallucinations, Denies memory loss, Denies mood swings and Denies suicidal ideation Endocrine Endocrine: Denies excessive sweating and Denies palpitations Hematologic/Lymphatic Hematologic/Lymphatic: Denies easy bleeding, Denies easy bruising and Denies lymphadenopathy Allergic/Immunologic Allergic/Immunologic: Denies itchy eyes and Denies wheezing Exam Vital Signs (past 8 hours): - 01/20/21 10:37 01/20/21 11:46 01/20/21 12:00 Temperature 97.1 F L Pulse Rate 63 69 71 Respiratory Rate 14 18 19 Blood Pressure 167/69 H Pulse Oximetry 100 100 99 01/20/21 12:23 01/20/21 12:30 01/20/21 12:31 Temperature Pulse Rate 66 67 65 Respiratory Rate 18 22 23 Blood Pressure 120/56 L 148/67 H Pulse Oximetry 01/20/21 13:00 01/20/21 13:30 01/20/21 13:52 Temperature Pulse Rate 69 75 82 Respiratory Rate 23 24 Blood Pressure 133/62 132/63 131/64 Pulse Oximetry 99 01/20/21 14:00 01/20/21 14:30 01/20/21 15:00 Temperature Pulse Rate 68 74 Respiratory Rate 23 25 H Blood Pressure 115/57 L Pulse Oximetry 100 100 01/20/21 16:13 01/20/21 16:14 01/20/21 16:15 Temperature Pulse Rate 71 70 Respiratory Rate Blood Pressure 142/62 H 147/68 H Pulse Oximetry 94 99 100 Oxygen Delivery Method Room Air Narrative Exam Narrative: Non acutely ill-appearing elderly male lying in hospital bed HEENT-normocephalic atraumatic PERRLA, visual burns normal to confrontation Neck-prominent bruit right carotid, none on left Lungs-clear with good breath sounds Heart-regular rate and rhythm with grade 2/6 systolic ejection murmur in the left and right precordium seems to radiate towards the right carotid, no thrill, normal S1-S2 Abdomen-benign, positive bowel tones, soft nontender nondistended no hepatosplenomegaly Neuro-alert orient x3, moves all 4 extremities, no focal neurologic defects that I can detect, cranial nerves intact, no nystagmus Objective Labs Result Diagrams: 01/20/21 12:06 01/20/21 12:06 Labs: Laboratory Results - last 24 hr 01/20/21 01/20/21 01/20/21 12:06 12:06 15:12 WBC 11.0 RBC 3.07 L Hgb 9.7 L Hct 28.6 L MCV 93.4 MCH 31.6 MCHC 33.9 RDW 15.6 H Plt Count 281 Neut % (Auto) 86.2 H Lymph % (Auto) 6.5 L Woodson % (Auto) 6.6 Eos % (Auto) 0.3 L Baso % (Auto) 0.4 Neut # (Auto) 9500 H Lymph # (Auto) 700 L Woodson # (Auto) 700 Eos # (Auto) 0 Baso # (Auto) 0 Sodium 138 Potassium 3.8 Chloride 109 H Carbon Dioxide 22 BUN 11 Creatinine 0.71 Estimated GFR > 60.0 BUN/Creatinine Ratio 15.5 Glucose 94 Calcium 8.3 L Total Bilirubin 0.6 AST 26 ALT 15 Alkaline Phosphatase 76 Troponin I < 0.012 Total Protein 6.1 L Albumin 3.3 L Globulin 2.8 Albumin/Globulin Ratio 1.2 SARS-CoV-2 (PCR) Negative Assessment & Plan Assessment & Plan narrative: 1. Multifocal thromboembolic CVA-this is the source of patient's symptoms based on multiple imaging modalities. Unclear whether this happen prior to his prior admission or occurred maybe to a greater degree on WednesdayJanuary 18 with his increased symptoms on that date. No obvious etiology for this at this point. 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 His lesions are in the posterior circulation which would be an unusual location for cardiac source of symptoms however. Patient does have risk factors including hypertension and carries a diagnosis of hyperlipidemia although most recent labs done [facility] show an LDL of 92 with an HDL of 60 but this was back in 2016 and patient's more recent labs are not available at this time. It appears he was likely on statin therapy at that time based on records from [facility] from 2018 Unfortunately, with patient's recent GI bleed he is not a candidate for anti- platelet therapy at this time nor candidate for any additional anticoagulation for presumed thromboembolic CVA. He does not appear to have any lesions that would be amenable to any other sort of intervention specially given his disease appears to be in the posterior circulation. At this point he would benefit from continued blood pressure management as well as statin therapy for presumed hyperlipidemia as well as skilled therapy evaluations prior to discharge 2. GI bleed-patient's hemoglobin and hematocrit are actually improved from numbers upon discharge. He has discontinued his Comer 2 inhibitor and I would avoid any additional NSAIDs and certainly avoid any form of anticoagulation as potential therapy for his newly diagnosed CVA. He will continue on iron replacement therapy to help improve his counts 3. Hypertension-patient's numbers relatively well controlled. Will allow some level of permissive hypertension at this point. 4. Chronic back pain-without NSAIDs would probably have to use more narcotic based treatments. Continue try and be very sparing with these 5. Code status-patient should continue to be full code in the event of sudden cardiac or respiratory arrest 6. VTE prophylaxis-sequential compression devices are appropriate but any anticoagulation is contraindicated given the recent GI bleed as above Plan of care was discussed with patient's son as well. COVID-19 COVID-19 status: Negative Result date/Date tested (Pos, Neg/Pending): 01/20/21
[2021-01-20] MEDS: FERROUS SULFATE 325 MG TABLET PO (17:53)
--- NOTE | 2021-01-20 22:09 | PC.NURSE ---
Pt arrived from ED alert/oriented, Lungs clear, Denies any discomfort at this time. Pt presents irritated & requests to be left alone completely. Pt resting quietly mid shift on. Call light w/in reach, pt calls appropriately for needs. Continue w/plan of care.
[2021-01-20] MEDS: PANTOPRAZOLE DR 40 MG TABLET PO (22:11)
--- NOTE | 2021-01-21 00:54 | PC.NURSE ---
Addendum entered by Naty Mullen R.N. 01/21/21 03:45: Patient got up at 0320 to use the restroom and agreed to have his vitals taken and a quick assessment done. This RN did not complete a skin assessment other than BUE as the patient had on pants and a gown. Original Note: At 1140 this RN entered the patients room to complete shift assessment and check on the patient. Patient was resting in bed and asked what do you want when the RN entered the room. RN explained that it was a new shift and this RN would complete an assessment and the vitals would be done, then the patient could sleep and call as needed. The patient got very upset and stated I told the last person that came into my room to leave me alone and not to come into my room, I don't care if you find me in here. This RN asked the patient if he was refusing his assessment and vitals and he stated yes. Through interaction, this RN could see that the patients breathing was regular and non-labored and the patient was alert and oriented to his surroundings. Patient had call light within reach and the bed alarm was on. This RN will place eyes on the patient for patient checks but will not wake the patient unless requested by the patient.
--- NOTE | 2021-01-21 01:13 | PC.NURSE ---
2340pm per Nurse pt. is refusing vitals and nurse assessment will do pt. checks
[2021-01-21 03:20] VITALS: O2SAT 96
[2021-01-21 03:33] VITALS: BP 119/69; PULSE 88; RESP 18; TEMP 37.1; O2SAT 96
--- NOTE | 2021-01-21 08:27 | P.PN_ITS ---
Subjective Subjective Date Patient Seen: 01/21/21 Time Patient Seen: 08:27 Interval history: Uneventful evening. No new neurologic symptoms. Been up out of bed going to the bathroom several times and had no vertigo. No visual symptoms that he can identify Exam Vital Signs (past 8 hours): - 01/21/21 03:20 01/21/21 03:33 Temperature 98.8 F Pulse Rate 88 Respiratory Rate 18 Blood Pressure 119/69 Pulse Oximetry 96 96 Oxygen Delivery Method Room Air Oxygen Flow Rate 0 Objective Labs Result Diagrams: 01/20/21 12:06 01/20/21 12:06 Labs: Laboratory Results - last 24 hr 01/20/21 01/20/21 01/20/21 12:06 12:06 15:12 WBC 11.0 RBC 3.07 L Hgb 9.7 L Hct 28.6 L MCV 93.4 MCH 31.6 MCHC 33.9 RDW 15.6 H Plt Count 281 Neut % (Auto) 86.2 H Lymph % (Auto) 6.5 L Wright % (Auto) 6.6 Eos % (Auto) 0.3 L Baso % (Auto) 0.4 Neut # (Auto) 9500 H Lymph # (Auto) 700 L Wright # (Auto) 700 Eos # (Auto) 0 Baso # (Auto) 0 Sodium 138 Potassium 3.8 Chloride 109 H Carbon Dioxide 22 BUN 11 Creatinine 0.71 Estimated GFR > 60.0 BUN/Creatinine Ratio 15.5 Glucose 94 Calcium 8.3 L Total Bilirubin 0.6 AST 26 ALT 15 Alkaline Phosphatase 76 Troponin I < 0.012 Total Protein 6.1 L Albumin 3.3 L Globulin 2.8 Albumin/Globulin Ratio 1.2 SARS-CoV-2 (PCR) Negative [facility] Medical History Allergic rhinitis, unspecified (01/29/11) Anemia, unspecified Chronic back pain (~2004) Diverticula of colon Essential hypertension Facet arthropathy, lumbar 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 Stroke-patient multiple foci of subacute stroke on imaging. Echocardiogram to be done today. I did hear a murmur yesterday which patient is unaware of and I cannot find in what old records I do have. Does not have any other symptoms to suggest endocarditis as a possible source of emboli but certainly that would be on the list. The murmur sounds like an aortic stenosis which otherwise should not have an impact on his risk for developing a stroke. Unfortunately telemetry was not initiated after patient left the ER. When I left patient last evening I was 99.9% sure I had ordered telemetry but apparently not. Otherwise perhaps this was auto discontinued from the ER order although again I am 99.9% sure I marked that to continue. In any event will initiate telemetry this morning and monitored for the duration of his hospital stay for dysrhythmias 2. GI bleed-patient appears to be stable. No evidence of ongoing bleeding. Blood counts were improved as noted on his H&P. No further evaluation at this time anyway. Probably at least 4 weeks of treatment before he would be safe for anti-platelet therapy in the setting of his it subacute stroke as above Note: Greater than 30 minutes was spent evaluating the patient on the floor, including examining the patient, discussing clinical course with clinical and nursing staff, reviewing clinical course in the computer, preparing documentation and writing orders for continued management of care, discussing s tatus with family as appropriate, reviewing plans for the next 24 hours with both patient/family and nursing staff as appropriate.
[2021-01-21 08:55] VITALS: BP 147/66; PULSE 75; RESP 16; TEMP 37.6; O2SAT 96
[2021-01-21] MEDS: VIT C/E/ZN/COPPR/LUTEIN/ZEAXAN CAPSULE 1 CAP PO (09:06)
[2021-01-21] MEDS: FERROUS SULFATE 325 MG TABLET PO (09:06)
[2021-01-21] MEDS: METOPROLOL ER 50 MG TABLET PO (09:06)
[2021-01-21] MEDS: PANTOPRAZOLE DR 40 MG TABLET PO (09:06)
[2021-01-21 09:23] VITALS: O2SAT 95
--- NOTE | 2021-01-21 09:30 | PC.NURSE ---
Addendum entered by Ramonita Levine R.N. 01/21/21 14:57: @1450 d/c instructions reviewed with patient's son, Mega, including rx medications, d/c CVA instructions, f/u appointment; patient escorted via wheelchair to private vehicle with belongings in hand Addendum entered by Ramonita Levine R.N. 01/21/21 09:34: Mega would like a call pre and post Echo; (c)[phone]; (h)[phone] Addendum entered by Ramonita Levine R.N. 01/21/21 09:34: son/visitor is Mega and Original Note: Pt education regarding s/sx stroke, pathophysiology, telemetry, Echocardiogram and rx medication; calf-SCDs active; NIH 0; moderate heart murmur; bed alarm active and call light within reach
--- NOTE | 2021-01-21 11:09 | PT-IP ANOTE ---
Pt getting echo and is not available for PT evaluation. Will keep checking back to complete physical therapy evaluation.
[2021-01-21 11:36] VITALS: BP 147/66; PULSE 75
[2021-01-21 11:55] VITALS: BP 124/61; PULSE 70; RESP 16; TEMP 37.3; O2SAT 98
--- NOTE | 2021-01-21 11:56 | PT.IIE ---
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 Multifocal subacute infarcts within the posterior cerebral hemispheres and cerebellar hemispheres. 2. Volume loss and small vessel ischemic disease. Physical Therapy Inpatient Evaluation/Re-Eval M1 PT/OT-IP Prior Functional Status Start: 01/21/21 12:49 Freq: NEEDED Status: Active Protocol: Document 01/21/21 11:56 DLM (Rec: 01/21/21 13: DL [id number]) Medical Review Prior Functional Status Medical History Reviewed Yes Diet/Fluid Consistency Regular Communication WNL Mobility and Gait Independent without device community distances Activities of Daily Living and IADL's Independent, helps take care of his who was recently hospitalized Prior Functional Level (Other details) he takes care of the garden Social History Household Members spouse Living Arrangements House Number of Floors (Floors) 3 or More Floors Number of Stairs To Enter/Railing? he can stay on main level of house M2 PT-IP Current Condition Start: 01/21/21 12:49 Freq: NEEDED Status: Active Protocol: Document 01/21/21 11:56 DLPcao (Rec: 01/21/21 13:21 DL [id number]) Physical Therapy Current Condition Current Condition Evaluation Date 01/21/21 Treatment Diagnosis CVA, impaired balance and coordination Onset Date 01/20/21 M3 PT-IP Subjective Start: 01/21/21 12:49 Freq: NEEDED Status: Active Protocol: Document 01/21/21 11:56 DLM (Rec: 01/21/21 13: ON LICENSE OF [facility] [id number]) Subjective Physical Therapy Visit Type Type Initial Evaluation Visit Start Time 11:32 Visit Stop Time 11:56 Total Visit Minutes 24 Number of PACKING TRACTOR MACHINE OPERATOR Visits 0 Physical Therapy Visit Comments Patient Comments No dizziness today, during episodes at home he felt intense spinning, he feels very tired today but also did not sleep well last night Patient Goals return home Therapy Pain Assessment Pain When Pain Assessed During Mobility Pain Present Pain Present Denied Pain M4 PT-IP Mobility and Gait Start: 01/21/21 12:49 Freq: NEEDED Status: Active Protocol: Document 01/21/21 11:56 DLM (Rec: 01/21/21 13:21 DL [id number]) PT-Bed Mobility Assessment Rolling Type of Rolling Bilateral Level of Assist Independent Supine to Sit Supine to Sit Independent Sit to Supine Sit to Supine Independent Scooting Scooting to Edge of Bed Independent Scooting Up and Down in Bed Independent PT-Transfer Assessment Sit to and From Stand Sit to and from Stand Independent Equipment Transfer Assistive Device None,Gait Belt Transfers Transfer Destination Bed Transfer Technique Stand Step Pivot Transfer Ability Level of Assist Independent Gait Assessment Gait Gait Assistance Required: Independent Distance (Feet) 300 Assistive Devices Assistive Device None,Gait Belt Factors Limiting Gait Function Factors Limiting Gait Function Decreased Activity Tolerance Comments Gait Comments pt reports he is walking slower than normal, he c/o feeling tired, noted he occassionally reaches out to touch coker/furniture, he denies dizziness Stair Climbing Assessment Evaluation Level of Assist On Stairs Independent Devices Stair Climbing Assistive Devices Left Railing,Right Railing Technique/Endurance Stair Climbing Direction Ascend and Descend Stair Climbing Technique Step Over Step Number of Steps Climbed 3 Query Text: Stair Climbing Set # Repetitions (reps) 1 Comments Stair Climbing Comments no difficulty with functional strength on steps, needs rail( s) to manage his LE coordination and balance impairments PT-Balance Assessment Sitting Balance and Reactions Static Sitting Balance Ability Normal Dynamic Sitting Balance Ability Normal Standing Balance and Reactions Static Standing Balance Ability Good Dynamic Standing Balance Ability Fair Balance Tests Single Limb Standing Right 2-3 sec hold, can not hold on left with LOB Left Romberg increased sway but no loss of balance Tandem Standing unable to hold, difficulty getting into position Curry Balance Test Score 49/56 Query Text:Score Functional Assessments Functional Tests Tinetti Balance and Gait Assessment Balance 12, Gait 10 M5 PT-IP Objective Assessments Start: 01/21/21 12:49 Freq: NEEDED Status: Active Protocol: Document 01/21/21 11:56 DL (Rec: 01/21/21 13:21 DL [id number]) Orientation Orientation/Cognition Level of Alertness Alert Orientation Name,Age,Birthday,Month,Date, Year,Day of Week,Place, Situation Language Function Ability No Deficits Noted Safety Awareness Understands Safety Issues Memory Description No Deficits Noted Comments mild defensiveness about deficits, he is concerned about getting better, general grumpiness about being in the hospital and many tests Gross Range of Motion Upper Extremity ROM Assessment Within Functional Limits Lower Extremity ROM Assessment Within Functional Limits Strength Upper Extremity Strength Assessment Within Functional Limits Lower Extremity Strength Assessment Within Functional Limits Coordination Assessment Gross Coordination Gross Coordination Impaired Assessment Pronation/Supination Test Minimal Impairment Foot Tapping Test Minimal Impairment Coordination Comments mild UE drift on left right foot more impaired than left with rapid alternating Left UE more impaired during pronation/supination Sensation Assessment Sensation Gross Sensation WNL Muscle Tone Muscle Tone WNL Yes M6 PT-IP Treatment Start: 01/21/21 12:49 Freq: NEEDED Status: Active Protocol: Document 01/21/21 11:56 DLM (Rec: 01/21/21 13:21 ON LICENSE OF [facility] [id number]) Physical Therapy Treatment Education Education Provided Safety Other Treatments Other Treatment Performed educated pt in findings from eval and how to decrease his fall risks at home, could benefit from walking stick or cane for gait on uneven surfaces M7 PT-IP Assessment and Plan Start: 01/21/21 12:49 Freq: NEEDED Status: Active Protocol: Document 01/21/21 11:56 DLM (Rec: 01/21/21 13:21 ON LICENSE OF [facility] [id number]) PT Summary Assessment and Plan Potential Rehabilitation Potential Good Status of Condition at Evaluation Evolving Summary Impairments Balance,Coordination,Gait, Activity Tolerance Assessment Summary Mr Sexton is alert and resting in bed. He reports his dizziness has resolved. He does not report any deficits. Clinical testing shows mild coordination and balance impairments. His gait is independent without a device on level surfaces. He could benefit from a cane or walking stick on uneven surfaces to manage his balance and coordination impairments. No dizziness was provoked during mobility/gait. Suspect his fatigue is a combination of poor sleep, low H&H and new CVA. He appears safe to return home at when medically cleared. Will defer further physical therapy to out-pt PT. Pt was receptive to education about his deficits. He is eager to return home. Recommend nursing supervise him while hospitalized to monitor his symptoms. Frequency of Treatment Frequency Of Treatment Discharge Treatment Plan Other Recommendations and Next Treatment defer further treatment to out Focus -pt physical therapy Recommendations To Nursing Amount of Assist Needed Standby Assistance Discharge Recommendations PT Discharge Recommendations Home,Outpatient PT Other Discharge Recommendations out-pt PT for balance and coordination Transportation Needs at Discharge Private Vehicle
--- NOTE | 2021-01-21 13:51 | OT.IP.EVAL ---
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) Melanoma (~2016) Mixed hyperlipidemia Retinal detachment (~2001) Spondylolisthesis at L4-L5 level Tinnitus (~2014) Surgical History (Last Reviewed 01/20/21 @ 16:57 by Mian Pryor MD) Anesthesia History of spinal surgery Occupational Therapy Inpatient Evaluation/Re-Eval M1 PT/OT-IP Prior Functional Status Start: 01/21/21 12:49 Freq: NEEDED Status: Active Protocol: Document 01/21/21 13:17 [facility] (Rec: 01/21/21 14:16 [facility] [id number]) Medical Review Prior Functional Status Medical History Reviewed Yes Diet/Fluid Consistency Regular Communication WNL Mobility and Gait Independent without device community distances Activities of Daily Living and IADL's Independent, helps take care of his who was recently hospitalized Prior Functional Level (Other details) he takes care of the garden Social History Household Members spouse Living Arrangements House Number of Floors (Floors) 3 or More Floors Number of Stairs To Enter/Railing? he can stay on main level of house Home Environment Standard Height Toilet,Walk in Shower Home Equipment Shower Seat without Backrest Additional Social History Comment Pt's son now home to assist to take care of pt's and other family members to come and assist. M2 OT-IP Current Condition Start: 01/21/21 13:51 Freq: Status: Active Protocol: Document 01/21/21 13:17 [facility] (Rec: 01/21/21 14:16 [facility] [id number]) Occupational Therapy Current Condition Current Condition Evaluation Date 01/21/21 Treatment Diagnosis CVA Diagnosis Onset Date 01/20/21 M3 OT- IP Subjective and Pain Start: 01/21/21 13:51 Freq: Status: Active Protocol: Document 01/21/21 13:17 [facility] (Rec: 01/21/21 14:16 [facility] [id number]) OT- Subjective Occupational Therapy Visit Type Type Initial Evaluation Visit Start Time 13:17 Visit Stop Time 13:51 Total Visit Minutes 34 Occupational Therapy Visit Comments Patient Comments Pt agreed to do OT eval. Patient/Caregiver Goals TO go home. OT Pain Assessment Pain When Pain Assessed At Rest Pain Present Pain Present Denied Pain M4 OT- IP ADL's Start: 01/21/21 13:51 Freq: Status: Active Protocol: Document 01/21/21 13:17 [facility] (Rec: 01/21/21 14:16 [facility] [id number]) OT [id number] Comments OT Self-Feeding Comments Not at meeal time. OT ADL-Grooming Comments OT Grooming Comments Pt states did prior. OT ADL-Dressing General Eval Lower Body Dressing Ability Contact Guard Assistance Comments OT Dressing Comments CGA while standing to garrison and doff his pants for balance. Suggested for now best to sit down when garrison/doff his pants for safety. OT ADL-Toileting Comments OT Toileting Comments Pt did not have to go. OT ADL-Bathing Comments OT Bathing Comments Pt not wanting to shower at this time. Pt states able to use his 's shower stool if needed. M5 OT- IP IADL's Start: 01/21/21 13:51 Freq: Status: Active Protocol: Document 01/21/21 13:17 [facility] (Rec: 01/21/21 14:16 [facility] [id number]) OT-Instrumental Activities of Daily Living Home Safety Awareness Awareness of Need for Assistance at Home Decreased Awareness Medication Management Medication Management Comments Concerns for safety, pt would benefit from assist. Money Management Money Management Comments Concerns for safety, pt would benefit from assist. Meal Preparation Meal Preparation Comments Concerns for safety, pt would benefit from assist. Electronic Sensing Equipment Assembler Electronic Sensing Equipment Assembler Comments Concerns for safety, pt would benefit from assist. Driving Driving Concerns Identified Regarding Safety M6 OT- IP Functional Cognition Start: 01/21/21 13:51 Freq: Status: Active Protocol: Document 01/21/21 13:17 [facility] (Rec: 01/21/21 14:16 [facility] [id number]) Cognitive Factors Limiting Selfcare Function Cognitive Ability Level of Alertness Alert Patient Orientation Name,Place,Situation Attention Span Ability Capable of Focused Attention, Capable of Sustained Attention Ability to Follow Commands Able to Follow One Step Commands Memory Description Short Term Impaired Safety Awareness Underestimates Need for Assistance Problem Solving Ability No deficits Noted Executive Function Ability Unable to Hold Focus,Unable to Switch Focus,Unable to Remember Details Cognitive Comments Cognitive Assessment Comments Pt able to complete 1/2 of [place] Making Part B and time already at 120 seconds and not wanting to complete the rest as pt states having trouble to focus. Pt score implies severe impairments for visual attention, task switching, speed of processing, mental flexibility and executive functioning. It is strongly suggested that pt not drive at this time. OT- Vision and Hearing OT- Hearing Assessment OT- Hearing Assessment WFL OT- Vision Assessment Visual Acuity Glasses All The Time Visual Attentiveness WFL Occular Pursuits WFL Visual Kim WFL Diplopia Absent M7 OT- IP Mobility and Balance Start: 01/21/21 13:51 Freq: Status: Active Protocol: Document 01/21/21 13:17 [facility] (Rec: 01/21/21 14:16 [facility] [id number]) OT- Bed Mobility Assessment Supine to Sit Supine to Sit Assist Independent Sit to Supine Sit to Supine Assist Independent OT-Transfer Assessment Sit to and From Stand Sit to and from Stand Standby Assistance Transfers Transfer Ability Standby Assistance Technique Transfer Destination Bed,Chair Transfer Technique Stand Step Pivot Devices Transfer Assistive Devices None,Gait Belt Comments Mobility Comments Distant SBA when moving in the room. Close SBA when pt able to climb up the bench and sit to the window area. OT- Gait Assessment Comments Gait Ability Comments SBA with the room. OT- Balance Assessment Sitting Balance and Reactions Static Sitting Balance Ability Normal Dynamic Sitting Balance Ability Normal Standing Balance and Reactions Static Standing Balance Ability Good Dynamic Standing Balance Ability Fair Comments Other Balance Tests/Deviations/Treatment Decreased balance while trying : to garrison pants while standing and needing CGA for balance. Suggested best to have someone walk his 150lb dog for now until his overall dynamic balance improves. M8 OT- IP Objective Assessments Start: 01/21/21 13:51 Freq: Status: Active Protocol: Document 01/21/21 13:17 [facility] (Rec: 01/21/21 14:16 [facility] [id number]) OT Gross Range of Motion Upper Extremity Range of Motion Assessment Within Functional Limits OT Strength Upper Extremity Strength Assessment Within Functional Limits Comments Strength Comments BUE 4+/5 OT- Coordination Assessment Upper Extremity Finger to Nose Test Within Functional Limits Comments Coordination Comments 9 hole peg test right hand 50% percentile and left hand at 75% for his age. OT-Muscle Tone Assessment Muscle Tone WNL Yes OT Sensation Assessment Comments Summary Comments Intact for light touch. Slight decreased awareness for position in space for left arm elbow to distally. Educated pt to be careful at night and make sure to turn on the light if having to go to the bathroom. M9 OT- IP Assessment and Plan Start: 01/21/21 13:51 Freq: Status: Active Protocol: Document 01/21/21 13:17 [facility] (Rec: 01/21/21 14:16 [facility] [id number]) OT Summary Assessment and Plan Potential Rehabilitation Potential Good Analytic Complexity at Evaluation Moderate Summary OT Impairments Balance,Coordination, Functional Cognition, Functional Mobility,Dressing, Toileting,Bathing,Shower Transfers,Activity Tolerance Progress Towards Goals Progressing Toward Goals Assessment Summary Pt MOD complexity and main barriers are a little impulsive, decreased dynamic balance, decreased functional cognition of executive function and short term memory , pt having trouble to focus, and pt would benefit from outpt PT for dynamic balance and THREAD SPINNER/OT for cognitive needs . Pt not wanting to have any therapy and just wanting to go home. Pt is aware to take things slow. Pt also feels that he will do better when he finally gets some sleep. Goals Self-Feeding Goal Independent Grooming Goal Independent Dressing Goal Independent Toileting Goal Independent Bathing Goal Independent Toilet Transfer Goal Independent Shower Transfer Goal Independent Days to Meet Goals 3 Frequency of Treatment Frequency Of Treatment Once a Day Treatment Plan OT Treatment Plan ADL Training,Functional Cognition Training,Functional Mobility,Patient/Family Education,Discharge Planning Other Treatment Recommendations and Next Shower if still here. Treatment Focus Discharge Recommendations OT Discharge Recommendations Home with Assistance outpt PT for dynamic balance and THREAD SPINNER/OT for cognitive needs Transportation Needs at Discharge Private Vehicle
--- NOTE | 2021-01-21 16:57 | CM.DANOTE ---
DCP ASSESSMENT: Patient is an 80 year-old male admitted for a CVA. PCP Mian Pryor. Primary payer is [employer] and self-pay. Patient had a recent hospital admission on 01/14 for a GI Bleed. 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 Therapies recommend home with outpatient services. [facility] Student met with patient at bedside this date he was alert and oriented. Educated patient on role of social work in D/C planning. He stated he is independent at home and does provide care for who is ill. He reported he generally drives. Patient plan is to D/C home. PLAN: CM Team to continue to follow patient. Anticipate D/C home with recommendations for outpatient services per therapy. TRISTAN Dorado MSW Student Discharge Planning/Care Management CM Discharge Assessment Start: 01/21/21 11:54 Freq: Status: Discharge Protocol: Document 01/21/21 11:54 [place] (Rec: 01/21/21 12:07 [place] [id number]) Discharge Planning Assessment Assigned Leather Roller TRISTAN Jalloh Student Contact Information Alissa Sexton, Advance Directives? Yes Advance Directives on File Yes History Provided By Patient,Medical Record Has Patient been admitted in last 30 Yes days? Comment 01/14/21 for GI bleed Prior Living Arrangements House Household Members spouse Type of transporation used prior to Drives own vehicle admit Independent with ADL's Yes Is patient alert and oriented? Yes Caregiver for Another Yes: has Barriers to Discharge No Transportation Arrangement Son Mega Sexton will provide transportation at time of D/C Whiteboard Updated in Patient Room with Yes name and ext. # of Leather Roller Review Status In Process
--- NOTE | 2021-01-30 08:45 | P.DS_ITS ---
History of Present Illness History of Present Illness Date Patient Seen: 01/21/21 Chief complaint: severe dizziness, nausea, ongoing Narrative: 80-year-old male recently admitted to [facility] for symptoms initially of dizziness found to be anemic with evidence of upper GI bleed. Was transfused had upper endoscopy which revealed some duodenitis and was discharged. He at that time claimed that the transfusions seem to make his dizziness tremendously better, however his was also in the hospital at the same time and he was quite anxious to be able to be discharged to help manage her care, and perhaps symptoms were not quite as improved as he suggested In any event he had worsening of his dizziness, including 2 discrete episodes of pretty classic vertigo on the 18 of January. He did have a severe headache as well on Wednesday the 18 of January. He may have had some visual changes during 1 of these episodes as well on the 18 of January. Currently thinks maybe he is having difficulty reading with some of the lines overlapping but is very unclear about that. He has persistently had some dizziness sees had no further GI symptoms. Part of his presentation last time included some melanotic stools which have not recurred. Discharge Providers Provider Date of admission: 01/20/21 15:24 Discharge Date: 01/21/21 Primary care physician: Mian Pryor MD Consults: 01/20/21 16:39 Consult to Discharge Planning Routine Comment: Consult to Occupational Therapy Evaluate & Treat Comment: Physician Instructions: Evaluate and treat Consult to Physical Therapy Evaluate & Treat Comment: Physician Instructions: Evaluate and Treat Consult to Speech Therapy Evaluate & Treat Comment: Physician Instructions: Evaluate and treat Discharge provider: Mian Pryor MD Summary Hospital Course Discharge Diagnosis: 1. 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 Vertigo/dizziness secondary to his acute/subacute CVA 3. Aortic stenosis, moderate 4. Upper GI bleed, resolved 5. Duodenitis 6. Essential hypertension 8. Mixed hyperlipidemia Hospital Course: Patient been recently hospitalized for an upper GI bleed diagnosed with duodenitis as a source of bleeding. He had increasing difficulty with vertigo and dizziness at home. This had been 1 of his presenting symptoms with his GI bleed thought to be secondary to anemia and did indeed by his report resolve with transfusion and prior to discharge with this recent visit In any event he had increasing symptoms rather sudden onset that were quite severe morning of admission. He was admitted because of CVA. Imaging revealed multiple multi focal subacute infarcts within the posterior cerebral hemispheres and cerebellar hemispheres. There is also reduce flow/complete stenosis (depending on which imaging study is reviewed) within the right vertebral and basilar arteries consistent with partial stenosis as well as mild bilateral internal carotid artery stenosis. Tele stroke was consulted via the emergency department and patient was not felt to benefit from immediate intervention. Because of patient's recent GI bleeding he was not placed on any anti-platelet therapy or any anticoagulation. Echocardiogram did not reveal a source of cardiac emboli although did diagnosis new aortic stenosis of moderate intensity Patient had limited cardiac monitoring but no dysrhythmias were noted during time he was monitored Physical therapy and occupational therapy saw him felt he was certainly safe to go home with plans for outpatient physical therapy Status at Discharge Cognitive/behavioral status at discharge: at baseline, oriented Functional status at discharge: independent ambulation Overall status at discharge: patient is progressing back to baseline Time Spent with Patient Time spent: Greater than 30 minutes Exam Vital Signs (past 8 hours): Oxygen Delivery Method Room Air Oxygen Flow Rate 0 Objective Labs Result Diagrams: 01/20/21 12:06 01/20/21 12:06 [facility] Medical History Allergic rhinitis, unspecified (01/29/11) Anemia, unspecified Chronic back pain (~2004) Diverticula of colon Essential hypertension Facet arthropathy, lumbar 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 Not a candidate for anticoagulation or even anti-platelet therapy given his recent upper GI bleed. He will continue on treatment for his duodenitis with proton pump inhibitors etcetera Patient will continue monitor blood pressure and may benefit from more aggressive treatment with that Patient need outpatient cardiac monitoring as well. Patient would also benefit from referral to cardiology for monitoring and management of his at this time moderate aortic stenosis. All of this is discussed with patient at time of discharge in great detail. Discharge Plan Discharge Plan Patient Disposition: Home Discharge orders & Medications Prescriptions: New atorvastatin 40 mg tablet 40 mg PO DAILY Qty: 90 RF: 3 Continued betamethasone dipropionate 0.05 % ointment 1 applictn TOP DAILY RF: 0 Vitamin A 1 tab PO DAILY RF: 0 Vitamin D 1 tab PO Q OTHER DAY RF: 0 lutein 20 mg tablet 20 mg PO DAILY RF: 0 krill oil 500 mg capsule 500 mg PO DAILY RF: 0 Calcium 2 tab PO DAILY RF: 0 Green Tea 1 tab PO DAILY RF: 0 ferrous sulfate 325 mg (65 mg iron) Tablet 325 mg PO BIDWM Qty: 150 RF: 3 pantoprazole 40 mg tablet,delayed release (DR/EC) 40 mg PO BID Qty: 60 RF: 3 metoprolol succinate 50 mg tablet extended release 24 hr 50 mg PO DAILY Qty: 90 RF: 3 Follow up/Referrals: Mian Pryor MD [Primary Care Provider] - 1 Week Discharge Health Status Multidrug resistant organism: No MDRO Diet/Activity/Treatments Diet: Diet as Tolerated Visit Report/Discharge Packet Instructions: DI for Stroke-Ischemic Discharge Data Primary Care Provider: Mian Pryor
== END 2021-01-21 15:01 | disposition home or self-care (01) | DRG 66 ==
LOC: ED 15:19 → AC 01-21 08:09
PROVIDERS: Admitting Provider Internal Medicine; Emergency Provider Emergency Medicine; PCP Internal Medicine; Referring Provider Emergency Medicine; Visit Provider Internal Medicine
DX: I63.443 Cerebral infarction due to embolism of bilateral cerebellar arteries (principal); R42 Dizziness and giddiness; I10 Essential (primary) hypertension; E78.2 Mixed hyperlipidemia; K29.80 Duodenitis without bleeding; M54.9 Dorsalgia, unspecified; Z20.822 Contact with and (suspected) exposure to COVID-19; Z87.891 Personal history of nicotine dependence; R29.700 NIHSS score 0
CPT/HCPCS: 36415; 70450; 70496; 70498; 70548; 70553; 80053; 84484; 85025; 87635; 92522; 93005; 93010; 93306; 93880; 96360; 96361; 97162; 97166; 97530; 99223; 99238; 99285; C9803; G0378; A9579; Q9967

== ENCOUNTER → 2021-03-06 12:55 | Outpatient (CLI) | payer MEDICARE, SELFPAY ==
[2021-01-20 16:39] VITALS: BMI 52.0
--- NOTE | 2021-03-31 16:44 | PM.CARDMON.1 ---
Planer Feeder Report Referral & Results Date Patient Seen: 03/06/21 Requesting provider: Mian Pryor Indication: CVA, dizziness Duration of monitoring (days): 14 Diary information: There are no patient events to review Data: Minimum heart rate was 40 beats per minute at 20:23 on 03/19/2021 Maximum sinus heart rate was 114 beats per minute at 06:52 on 03/07/2021 Maximum overall heart rate was 182 beats per minute at 21:36 on 03/17/2021 during an 8 beat run less than 1% of identified beats were supraventricular ectopic in origin classifying them as rare Approximately 1.9% of identified beats were ventricular ectopic in origin classifying them as occasional this included a 39.7 second run of ventricular trigeminy There was 1 run of nonsustained polymorphic ventricular tachycardia that was 4 beats in duration There was 1 pause of 3.0 seconds There were 69 runs of SVT/atrial tachycardia the fastest being the 8 beat run above the longest lasting 19.2 seconds and average rate of 120 beats per minute Impression: 14 day environmental monitoring specialist showing very rare, very brief runs of SVT/atrial tachycardia. In addition a single 3 second pause was identified. Patient also with a single 4 beat run of polymorphic nonsustained ventricular tachycardia Suggest cardiac consultation given the 3 second pause noted above
== END ==
PROVIDERS: PCP Internal Medicine; Referring Provider Family Medicine; Visit Provider Internal Medicine
DX: I63.9 Cerebral infarction, unspecified (principal)
CPT/HCPCS: 93246; 93248

== ENCOUNTER → 2021-03-31 09:54 | Outpatient (CLI) | payer MEDICARE, SELFPAY ==
[2021-01-20 16:39] VITALS: BMI 52.0
[2021-03-31 12:05] LABS: COVID19 -Nasal RAPID Negative (Negative)
== END ==
PROVIDERS: PCP Internal Medicine; Visit Provider Physical Medicine & Rehabilitation
DX: Z20.822 Contact with and (suspected) exposure to COVID-19 (principal)
CPT/HCPCS: 87635; C9803

== ENCOUNTER 2021-04-01 07:10 | Outpatient (CLI) | payer MEDICARE, SELFPAY ==
[2021-01-20 16:39] VITALS: BMI 52.0
[2021-04-01] VITALS (11 sets, daily range): BP systolic 154–212; BP diastolic 72–92; PULSE 62–72; RESP 14–23; TEMP 36.9; O2SAT 97–100
--- NOTE | 2021-04-01 | DI.RAD.S_ITS ---
PROCEDURE: PAIN L/S MED/LAT N RFA BILAT INDICATIONS: SPONDYLOSIS COMPARISON: [facility], MR, MR LUMBAR SPINE WO CON, 11/15/2020, 7:28. [facility], CR, XR LUMBAR SPINE MIN 4V, 08/27/2020, 9:36. FINDINGS: Fluoroscopic spot filming was performed to verify placement of spinal needles at the L4, L5 and S1 level(s), as labeled on the films. Appropriate location(s) of the needle tip(s) was confirmed by injection of iodinated contrast. IMPRESSION: Fluoroscopy guidance for pain management. Dictated by: Anita Meléndez M.D. on 04/01/2021 at 9:27 Approved by: Anita Meléndez M.D. on 04/01/2021 at 9:27
[2021-04-01] MEDS: MIDAZOLAM 5 MG/5 ML VIAL IV (08:16)
[2021-04-01] MEDS: fentaNYL 100 MCG/2 ML INJ 50 MCG IV (08:16)
[2021-04-01] MEDS: LIDOCAINE 1% 20 ML 10 ML INJ (08:36)
[2021-04-01] MEDS: BUPIVACAINE 0.5% (PF) VIAL 5 ML INJ (08:36)
--- NOTE | 2021-04-01 08:51 | P.PCN_ITS ---
Date/Time/Diagnoses Date of procedure: 04/01/21 Time of procedure: 08:51 Pre-procedure diagnosis: 1. RECALCITRANT FACET ARTHROPATHY Post-procedure diagnosis: same Procedure Notes Procedure: 1. BILATERAL L4 AND L5 MEDIAL BRANCH RADIOFREQUENCY NEUROTOMY AND S1 DORSAL RAMUS BRANCH RADIOFREQUENCY NEUROTOMY Indications: Riley is referred by Dr. Caballero for treatment of facet arthropathy. Physician: Ernst Beltran Total Fluoroscopy time (seconds): 18 Total sedation minutes: 30 Complications: none Procedure in detail & Post-procedure care: DESCRIPTION OF PROCEDURE Bilateral L4 and L5 medial branch radiofrequency neurotomy and bilateral S1 dorsal ramus radiofrequency neurotomy under fluoroscopy with conscious sedation. The patient is well known to this clinic having undergone previous facet injections with good but temporary relief. The patient has experienced appropriate, concordant relief with previous facet and median branch blocks but the patient's pain has been recalcitrant to further conservative measures. Therefore, based upon the patient's relief and persistent symptoms, the patient is considered an appropriate candidate for facet rhizotomy. All of the patient's questions regarding the risks versus benefits of the procedure, including, but not limited to, bleeding, infection, temporary as well as lasting nerve injury, paralysis, stroke, and , as well treatment alternatives were answered to satisfaction. After obtaining informed consent, denial of pertinent drug allergies, as well as being made aware of the potential risks of bleeding, infection, spinal cord trauma, paralysis, temporary and permanent nerve damage, seizure, stroke, and possible , the patient was brought to the fluoroscopy suite and positioned prone on the fluoroscopy table. The lumbar region was prepped with Betadine and covered with a fenestrated drape in the usual sterile fashion. Appropriate monitors applied including pulse oximeter, pulse, and blood pressure for regular monitoring throughout the procedure. After review of previous anaesthesic history and IV conscious sedation the patient was deemed safe to proceed with today's procedure with IV conscious sedation as ASA class II designation. Safety time-out was performed to confirm patient ID, procedure to be performed and site of procedure. IV sedation was accomplished with a combination of 2mg of Versed and 50mcg of Fentanyl a dministered by the RN after DO order, titrated to patient comfort during the course of the procedure while the patient remained responsive to all verbal commands. After local infiltration using 1% lidocaine, under fluoroscopic guidance, a 10- cm RF insulated needle with a 10-mm active tip was positioned parallel to the junction of the right sacral ala and the superior articulating process where the S1 dorsal ramus resides. Needle placement was confirmed with motor stimulation of .5v on the right which produced local stimulation without radicular component. The stimulation was then increased to 2v with, once again, only local multifidus stimulation without radicular component. The needle was then removed and the identical procedure was performed along the length of the right L5 medial branch with motor stimulation at .7v on the right. The identical procedure was once again performed along the length of the right L4 medial branch with motor stimulation of .5v on the right. The medial branches were then anesthetised with 0.5% Marcaine. This was then followed by two discreet lesions performed at 80 degrees Celsius for 90 seconds each. The identical procedure was repeated on the left. The patient tolerated the procedure well without signs or symptoms of complications prior to transfer to the recovery area continued monitoring without incident. The patient was then transferred to the recovery area where they were observed for an appropriate period of time after the injection. The patient reported a VAS score of 9 prior to the procedure and a post-procedure VAS of 0. POST OP INSTRUCTIONS The patient was provided a Pain Log to continue to record the patient's response to the target-specific procedure prior to the patient's follow-up visit with the referring physician. Additionally, specific post-injection care instructions and a contact number to our office were provided if concerns arise regarding possible complications associated with the procedure are suspected.
== END 2021-04-01 09:25 | disposition home or self-care (01) ==
LOC: RAD 07:11
PROVIDERS: PCP Family Medicine; Referring Provider Physical Medicine & Rehabilitation; Visit Provider Physical Medicine & Rehabilitation
DX: M47.816 Spondylosis without myelopathy or radiculopathy, lumbar region (principal); M47.817 Spondylosis without myelopathy or radiculopathy, lumbosacral region
CPT/HCPCS: 64635; 64636; 99152; 99153; J2250; J3010